=== PATIENT | female | born 1985 | race Caucasian/White ===

== ENCOUNTER 2016-08-12 14:32 | Emergency (ER) | payer OTHER ==
[~2016-08-12] VITALS: Ht 165.1 cm; Wt 55.8 kg
[~2016-08-12 14:32] MED LIST: HYDR-971 PO
[2016-08-12 14:45] VITALS: BP 120/70
--- NOTE | 2016-08-12 16:46 | ED.ADGEN ---
Past History Past Medical History: Anxiety, Bipolar, Depression, UTI Past Surgical History: Tubal ligation Smoking: Cigarettes Alcohol Use: Heavy Drug Use: Marijuana Adult General Chief Complaint Chief Complaint Vaginal discharge, odor HPI HPI Patient is a 31-year-old female presents with vaginal discharge and odor for the past week. Symptoms began after most recent menstrual period. Prior tubal ligation. Denies pain, dysuria, new sex partner. Patient had complete gynecological exam 3 weeks ago by PCP and states which he states was without concern. Review of Systems Review of Systems Review symptoms as per history of present illness. All other review symptoms are negative. Allergies Allergies Allergies Coded Allergies Type Severity Reaction Last Updated Verified Sulfa (Sulfonamide Antibiotics) Allergy Intermediate rash 04/18/16 Yes Uncoded Allergies Type Severity Reaction Last Updated Verified cillins Allergy Intermediate rash 04/18/16 Physical Exam Physical Exam Constitutional: Well developed, well nourished, no acute distress, non-toxic appearance. Abdomen: Bowel sounds normal, soft, no tenderness. Pelvic, strength genitalia normal, minimal discharge in the vagina, no nuchal subtle edema erythema, cervix visualized without lesion. Neurologic: Alert and oriented X 3, normal motor function, normal sensory function, Psychologic: Affect normal, judgement normal, mood normal. Current Patient Data Lab Results Microbiology 08/12/16 Wet Prep - Final, Complete EKG EKG [] Radiology/Procedures Radiology/Procedures [] Course & Med Decision Making Course & Med Decision Making Pertinent Labs and Imaging studies reviewed. (See chart for details) [Antibiotics prescribed with instructions to avoid alcohol and [employer] follow-up as needed] Final Impression Final Impression [#1 bacterial vaginosis] Problems: Dragon Disclaimer Dragon Disclaimer This electronic medical record was generated, in whole or in part, using a voice recognition dictation system. TIFFANIE CASTRO DO Aug 12, 2016 16:46
== END 2016-08-12 16:49 | disposition home or self-care (01) ==
LOC: ER 14:32
DX: N76.0 Acute vaginitis (principal); F17.210 Nicotine dependence, cigarettes, uncomplicated; F12.10 Cannabis abuse, uncomplicated; F10.10 Alcohol abuse, uncomplicated; Z87.440 Personal history of urinary (tract) infections; Z88.2 Allergy status to sulfonamides; Z88.1 Allergy status to other antibiotic agents
CPT/HCPCS: 99283; Q0111

== ENCOUNTER 2016-10-05 10:22 | Emergency (ER) | payer OTHER ==
[2016-10-05 10:30] VITALS: BP 139/82
--- NOTE | 2016-10-05 11:03 | PHYS DOC ---
Past History Past Medical History: Other Past Surgical History: Tubal ligation Smoking: Cigarettes Alcohol Use: Occasionally Drug Use: None Adult General Chief Complaint Chief Complaint: VAGINAL PROBLEM [facility] Peter is a pleasant 31-year-old female with a history of tubal ligation presents with vaginal discharge began several days ago described as a dark brown non- malodorous discharge. She admits she's had a history of BV in the past but no history of sexually transmitted diseases other than that. She's been in a monogamous relation with a new partner over the last several months. She denies any discharge at this the past. She had a little bit of lower crampy abdominal pain without urgency frequency or dysuria. Patient denies any fever, back pain, nausea, vomiting, diarrhea. Patient denies any rash, joint pain or joint swelling. Review of Systems Review of Systems Constitutional: Denies fever or chills [] Eyes: Denies change in visual acuity, redness, or eye pain [] HENT: Denies nasal congestion or sore throat [] Respiratory: Denies cough or shortness of breath [] Cardiovascular: No additional information not addressed in HPI [] GI: She does complain of some mild lower abdominal pain without nausea vomiting diarrhea or bloody stools. : Denies dysuria or hematuria [] Musculoskeletal: Denies back pain or joint pain [] Integument: Denies rash or skin lesions [] Neurologic: Denies headache, focal weakness or sensory changes [] Endocrine: Denies polyuria or polydipsia [] Current Medications Current Medications Current Medications Medications (Trade) Dose Ordered Sig/Kana Start Time Stop Time Status Last Admin Dose Admin Azithromycin (Zithromax) 1,000 mg 1X ONCE 10/05/16 11:00 10/05/16 11:01 UNV Ceftriaxone Sodium (Rocephin Im) 250 mg 1X ONCE 10/05/16 11:00 10/05/16 11:01 UNV Allergies Allergies Allergies Coded Allergies Type Severity Reaction Last Updated Verified Sulfa (Sulfonamide Antibiotics) Allergy Intermediate rash 04/18/16 Yes Uncoded Allergies Type Severity Reaction Last Updated Verified cillins Allergy Intermediate rash 04/18/16 Physical Exam Physical Exam vital signs reviewed and within normal limits. Constitutional: Well developed, well nourished, no acute distress, non-toxic appearance. [] Cardiovascular:Heart rate regular rhythm, no murmur [] Lungs & Thorax: Bilateral breath sounds clear to auscultation [] Abdomen: Bowel sounds normal, soft, no tenderness, no masses, no pulsatile masses. : No CMT no adnexal fullness or tenderness to palpation there is a thin dark brownish discharge that is non-malodorous. No other significant vaginal lesions are noted. [] Skin: Warm, dry, no erythema, no rash. [] Back: No tenderness, no CVA tenderness. [] Neurologic: Alert and oriented X 3 Psychologic: Affect normal, judgement normal, mood normal. [] Current Patient Data Lab Results Laboratory Tests Test 10/05/16 10:40 Urine Test Negative (NEG) EKG EKG [] Radiology/Procedures Radiology/Procedures [] Course & Med Decision Making Course & Med Decision Making Pertinent Labs and Imaging studies reviewed. (See chart for details) patient with a new vaginal discharge although not grading any CMT or adnexal fullness or tenderness. Patient has mild suprapubic pain urinalysis is pending patient's urine is pending and patient's swabs for GC and wet prep for BV are still pending. At this time I have offered empiric treatment for PID/cervicitis with oral azithromycin and a shot of Rocephin. Given her history of high risk behavior having new sexual partner unprotected sex we will call her with positive results if necessary. Impression: Vaginal discharge unclear etiology possibly cervicitis, patient is not doubt ectopic doubt UTI. [] Dragon Disclaimer Dragon Disclaimer This chart was dictated in whole or in part using Voice Recognition software in a busy, high-work load, and often noisy Emergency Department environment. It may contain unintended and wholly unrecognized errors or omissions. Departure Departure: Impression: Primary Impression: Vaginal discharge Additional Impression: Cervicitis Disposition: 01 HOME, SELF-CARE Condition: IMPROVED Referrals: TRACEY ZHENG (PCP) Patient Instructions: Cervicitis Additional Instructions: He is return for any new or increasing discharge please return for any abdominal pain with fevers or chills please return for any pain in the right lower quadrant or abdomen. Please use the medications as prescribed until you' re called with negative results. Scripts Acetaminophen (TYLENOL) 325 Mg Tablet 1-2 TAB PO QID, #30 TAB 2 Refills Prov: HARMONY CAMPBELL MD 10/05/16 Doxycycline Monohydrate (DOXYCYCLINE MONOHYDRATE) 100 Mg Capsule 1 CAP PO BID, #20 CAP Prov: HARMONY CAMPBELL MD 10/05/16 Problem Qualifiers HARMONY CAMPBELL MD Oct 05, 2016 11:03
[2016-10-05 11:06] LABS: U PREG PATIENT NEGATIVE (NEG)
[2016-10-05] MEDS ORDERED: cefTRIAXone IM 250 MG VIAL IM ONE ×2 (11:13→11:20)
[2016-10-05] MEDS ORDERED: AZITHROMYCIN 250 MG TABLET. PO ONE (11:20)
[2016-10-05] MEDS ORDERED: ACET325T9 PO (11:37)
[2016-10-05] MEDS ORDERED: DOXY100C14 PO (11:37)
[2016-10-08 17:09] LABS: CHLAMYDIA PROBE Negative (Negative)
== END 2016-10-05 11:40 | disposition home or self-care (01) ==
LOC: ER 10:22
DX: N89.8 Other specified noninflammatory disorders of vagina (principal); N72 Inflammatory disease of cervix uteri; F17.210 Nicotine dependence, cigarettes, uncomplicated; Z98.51 Tubal ligation status; Z88.2 Allergy status to sulfonamides
CPT/HCPCS: 36415; 81025; 87491; 87591; 96372; 99284; J0456; J0696; Q0111

== ENCOUNTER 2017-02-01 11:08 | Emergency (ER) | payer OTHER ==
[~2017-02-01] VITALS: Ht 165.1 cm; Wt 56.7 kg
[~2017-02-01 11:08] MED LIST changes: +ACET325T9 PO; +DOXY100C14 PO
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
[2017-02-01] MEDS ORDERED: oxyCODONE/APAP 5/325 1 TAB TABLET PO ONE (11:45)
[2017-02-01] MEDS ORDERED: KETOROLAC 60 MG/2 ML VIAL. IM ONE (11:45)
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
[2017-02-01] MEDS ORDERED: HYDR-971 PO (12:21)
[2017-02-01 12:25] VITALS: BP 151/100
== END 2017-02-01 12:26 | disposition home or self-care (01) ==
LOC: EEVIPCON 11:08 → ER 11:08
DX: S20.212A Contusion of left front wall of thorax, initial encounter (principal); F31.9 Bipolar disorder, unspecified; F41.9 Anxiety disorder, unspecified; F17.210 Nicotine dependence, cigarettes, uncomplicated; F12.10 Cannabis abuse, uncomplicated; Z87.440 Personal history of urinary (tract) infections; Z88.2 Allergy status to sulfonamides; Y08.89XA Assault by other specified means, initial encounter; Y93.89 Activity, other specified; Y99.8 Other external cause status; Y92.89 Other specified places as the place of occurrence of the external cause
CPT/HCPCS: 71101; 96372; 99284; J1885

== ENCOUNTER 2017-11-15 19:23 | Emergency (ER) | payer OTHER ==
[~2017-11-15] VITALS: Ht 165.1 cm; Wt 56.7 kg
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
[2017-11-15 20:20] LABS: BACTERIA,URINE FEW /HPF (0-FEW); BILIRUBIN,URINE NEG (NEG); CLARITY,URINE HAZY; COLOR,URINE YELLOW; GLUCOSE,URINE NEG (NEG); NITRITE,URINE NEG (NEG); RBC,URINE OCC /HPF (0-2); SQUAMOUS EPITHELIAL CELL,UR MOD /LPF; UROBILINOGEN,URINE 0.2 mg/dL (0.2 mg/dL)
[2017-11-15 20:21] LABS: GRANULAR CASTS,URINE OCC /HPF
[2017-11-15 20:22] LABS: BARBITURATES NEG (NEG); BENZODIAZEPINES NEG (NEG); CANNABINOIDS POS (NEG); COCAINE NEG (NEG); METHADONE NEG (NEG); OPIATES NEG (NEG); PHENCYCLIDINE NEG (NEG)
[2017-11-15 20:23] LABS: AMPHETAMINE/METHAMPHETAMINE POS (NEG)
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
[2017-11-15 21:00] VITALS: BP 124/80
[2017-11-15] MEDS ORDERED: ACETAMINOPHEN 500 MG TABLET PO ONE (21:15)
== END 2017-11-15 21:15 | disposition home or self-care (01) ==
LOC: ER 19:23
DX: S00.83XA Contusion of other part of head, initial encounter (principal); F19.10 Other psychoactive substance abuse, uncomplicated; F41.9 Anxiety disorder, unspecified; F17.210 Nicotine dependence, cigarettes, uncomplicated; Z88.2 Allergy status to sulfonamides; Z88.0 Allergy status to penicillin; Y04.0XXA Assault by unarmed brawl or fight, initial encounter; Y93.89 Activity, other specified; Y92.89 Other specified places as the place of occurrence of the external cause; Y99.8 Other external cause status
CPT/HCPCS: 36415; 70450; 70486; 72125; 80307; 81001; 81025; 99285; G0479

== ENCOUNTER 2018-01-16 00:48 | Emergency (ER) | payer OTHER ==
[~2018-01-16] VITALS: Ht 165.1 cm; Wt 58.1 kg
[2018-01-16 00:48] VITALS: BP 128/87
[~2018-01-16 00:48] MED LIST changes: +HYDR-3165 PO; -HYDR-971 PO
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
[2018-01-16] MEDS ORDERED: ACETAMINOPHEN 500 MG TABLET PO ONE (01:15)
== END 2018-01-16 01:18 | disposition home or self-care (01) ==
LOC: ER 00:48
DX: S10.93XA Contusion of unspecified part of neck, initial encounter (principal); R04.0 Epistaxis; J02.9 Acute pharyngitis, unspecified; F41.9 Anxiety disorder, unspecified; F32.9 Major depressive disorder, single episode, unspecified; F17.210 Nicotine dependence, cigarettes, uncomplicated; Z88.0 Allergy status to penicillin; Y08.89XA Assault by other specified means, initial encounter; Y93.89 Activity, other specified; Y92.89 Other specified places as the place of occurrence of the external cause; Y99.8 Other external cause status
CPT/HCPCS: 99282

== ENCOUNTER 2018-02-27 16:27 | Emergency (ER) | payer OTHER ==
[2018-02-27] MEDS ORDERED: PERM60CR12 TP (17:16)
[2018-02-27] MEDS ORDERED: PRED20TA PO (17:16)
--- NOTE | 2018-02-27 17:16 | PHYS DOC ---
Past History Past Medical History: Anxiety Past Surgical History: Tubal ligation Smoking: Cigarettes Alcohol Use: Occasionally Drug Use: None Adult General Chief Complaint Chief Complaint: SKIN PROBLEM HPI HPI Patient presents to the emergency department for evaluation. She states that earlier today, she developed diffuse itching on her neck and upper body, as well as on her arms. She has broken out into a maculopapular rash. She has been on doxycycline for about a week. She states that she had a lesion on her left thigh, which has since resolved, which her PCP thought might be either a spider bite or Lyme disease. However the patient states that she had Lyme testing done which came back negative. She is not having any fevers or chills or difficulty breathing. She denies any other complaints at this time. Review of Systems Review of Systems Constitutional: Denies fever or chills [] Eyes: Denies change in visual acuity, redness, or eye pain [] HENT: Denies nasal congestion or sore throat [] Respiratory: Denies cough or shortness of breath [] GI: Denies abdominal pain, nausea, vomiting, bloody stools or diarrhea [] : Denies dysuria or hematuria. Denies [] Musculoskeletal: Denies back pain or joint pain [] Neurologic: Denies headache, focal weakness or sensory changes [] Endocrine: Denies polyuria Allergies Allergies Allergies Coded Allergies Type Severity Reaction Last Updated Verified Sulfa (Sulfonamide Antibiotics) Allergy Intermediate rash 04/18/16 Yes Penicillins Allergy Unknown rash 11/15/17 Yes Physical Exam Physical Exam PHYSICAL EXAM: CONSTITUTIONAL: Well developed, well nourished HEAD: normocephalic, atraumatic EENT: PERRL, EOMI. Conjunctivae normal color, sclerae non-icteric; moist mucous membranes. NECK: Supple, non-tender; no meningismus. LUNGS: Lungs CTA, breathing even and unlabored. Normal air movement. HEART: Regular rate and rhythm, no murmur CHEST: No deformity; non-tender ABDOMEN: The abdomen is soft, and non-tender, no masses or bruits. EXTREM: Normal ROM; no deformity, no calf tenderness. Normal pulses palpable in all extremities. There is no pedal edema. SKIN: There is a diffuse maculopapular rash, scattered on the neck and trunk, which is pruritic. There are a few lesions on the left wrist as well, 3 discrete lesions, which are about 2 mm, and a 3-4 mm apart. There are no urticarial lesions. NEURO: Alert; normal speech and cognition; CN's grossly intact; strength grossly intact without focal deficit. BACK: No CVA TTP. Current Patient Data Vital Signs Vital Signs Date Time Temp Pulse Resp B/P (MAP) Pulse Ox O2 Delivery O2 Flow Rate FiO2 02/27/18 16:30 97.7 91 24 100 Room Air EKG EKG [] Radiology/Procedures Radiology/Procedures [] Course & Med Decision Making Course & Med Decision Making The exact etiology of the patient's symptoms are unclear. I suspect that she might have scabies, although the recent initiation of doxycycline does let and the possibility that this might be an allergic rash. I will give the patient up scabicide, as well as steroids and I recommended she use Benadryl for possible allergic symptoms, I discussed the need for close PCP follow-up and return precautions. Dragon Disclaimer Dragon Disclaimer This electronic medical record was generated, in whole or in part, using a voice recognition dictation system. Departure Departure: Impression: Primary Impression: Rash Disposition: HOME, SELF-CARE Condition: STABLE Referrals: TRACEY ZHENG (PCP) Patient Instructions: Drug Rash, Rash, Scabies Additional Instructions: Take Benadryl 25-50 mg every 6 hours for the next 3 days. Use caution as this may cause sedation. Additionally, take Pepcid AC 10 mg twice daily for the next 3 days. This medicine is available [id number]. Use the prescribed steroids as instructed. Return to medical care for any new, or worsening symptoms, the development of shortness of breath, new rash, dizziness lightheadedness, fevers, or any other new, or concerning symptoms. Scripts Prednisone (PREDNISONE) 20 Mg Tablet 40 MG PO DAILY for - for 5 Days, #10 TAB Prov: PEGGY SANTANA MD 02/27/18 Permethrin (PERMETHRIN) 60 Gm Cream..g. 1 ADONIS TP ONCE for -, #60 GM 1 Refill Prov: PEGGY SANTANA MD 02/27/18 PEGGY SANTANA MD Feb 27, 2018 17:16
[2018-02-27 17:25] VITALS: BP 120/68
== END 2018-02-27 17:38 | disposition home or self-care (01) ==
LOC: ER 16:27
DX: R21 Rash and other nonspecific skin eruption (principal); L29.9 Pruritus, unspecified; L98.8 Other specified disorders of the skin and subcutaneous tissue; F41.9 Anxiety disorder, unspecified; F17.210 Nicotine dependence, cigarettes, uncomplicated; Z88.0 Allergy status to penicillin; Z88.2 Allergy status to sulfonamides
CPT/HCPCS: 99283

== ENCOUNTER 2018-03-05 20:21 | Emergency (ER) | payer OTHER ==
[~2018-03-05] VITALS: Ht 167.6 cm; Wt 59.0 kg
[~2018-03-05 20:21] MED LIST changes: +PERM60CR12 TP; +PRED20TA PO
[2018-03-05 20:25] VITALS: BP 128/84
--- NOTE | 2018-03-05 20:27 | ED.ADGEN ---
Past History Past Medical History: Anxiety Past Surgical History: Tubal ligation Smoking: Cigarettes Alcohol Use: Occasionally Drug Use: None Adult General Chief Complaint Chief Complaint "... I think I got scabies again... I did the treatment... but I ve got them back..." HPI HPI Patient is a 33 year old male who presents with above hx and complaints of itching, return of rash that appears to be scabies. Pt. did complete treatment with Permethrin and did do a course of steroids and pepcid for itching. Pt. [facility] and [facility]. Pt. does have findings of scabies. Pt. did wash clothes but may have [facility]. Pt. does have Nix treatments in her storage locker. No recent travel, specific ill contacts. Recent HIV testing was reportedly negative. Review of Systems Review of Systems Constitutional: Denies fever or chills [] Eyes: Denies change in visual acuity, redness, or eye pain [] HENT: Denies nasal congestion or sore throat [] Respiratory: Denies cough or shortness of breath [] Cardiovascular: No additional information not addressed in HPI [] GI: Denies abdominal pain, nausea, vomiting, bloody stools or diarrhea [] : Denies dysuria or hematuria [] Musculoskeletal: Denies back pain or joint pain [] Integument: complaints of scabies lesions. Neurologic: Denies headache, focal weakness or sensory changes [] Endocrine: Denies polyuria or polydipsia [] All other systems were reviewed and found to be within normal limits, except as documented in this note. Family History Family History Non-contributory Current Medications Current Medications See Nursing for home meds. Allergies Allergies Allergies Coded Allergies Type Severity Reaction Last Updated Verified doxycycline Allergy Severe 03/05/18 Yes Sulfa (Sulfonamide Antibiotics) Allergy Intermediate rash 04/18/16 Yes Penicillins Allergy Unknown rash 11/15/17 Yes Physical Exam Physical Exam Constitutional: in acute emotional distress, non-toxic appearance. [] HENT: Normocephalic, atraumatic, bilateral external ears normal, oropharynx moist, no oral exudates, nose normal. [] Eyes: PERRLA, EOMI, conjunctiva normal, no discharge. [] Neck: Normal range of motion, no tenderness, supple, no stridor. [] Cardiovascular:Heart rate regular rhythm, no murmur [] Lungs & Thorax: Bilateral breath sounds equal at apexes with few scatted wheezes on auscultation [] Abdomen: Bowel sounds normal, soft, no tenderness, no masses, no pulsatile masses. [] Skin: Warm, dry, no erythema, extensive findings of scabies like lesions with excoriations secondary to scratching. Back: No tenderness, no CVA tenderness. [] Extremities: No tenderness, no cyanosis, no clubbing, ROM intact, no edema. [] Neurologic: Alert and oriented X 3, normal motor function, normal sensory function, no focal deficits noted. [] Psychologic: Affect anxious, judgement normal, mood normal. [] Current Patient Data Vital Signs Vital Signs Date Time Temp Pulse Resp B/P (MAP) Pulse Ox O2 Delivery O2 Flow Rate FiO2 03/05/18 20:25 97.9 98 18 100 Room Air EKG EKG [] Radiology/Procedures Radiology/Procedures [] Course & Med Decision Making Course & Med Decision Making Pertinent Labs and Imaging studies reviewed. (See chart for details). Pt. advised to clean her environment and use pesticide aerosols as directed over -the-counter preparations. Since patient already has bottles of nix in her storage unit would recommend attempt to retreat with these items. May repeat treatment with permethrin cream. If available may use lindane ointment- however this has a risk of neurotoxicity. If extremely resistant scabies may use[ Ivermectin 3 mg x 1 and repeat in 7 days with the topical treatments. None of the treatments will prevent re-infection with re-exposure. Must follow up with primary. Pt. warned tx usually induces increased itching. Use Benadryl 50 up 4 x day of pruritus. Final Impression Final Impression 1. Scabies[] Dragon Disclaimer Dragon Disclaimer This electronic medical record was generated, in whole or in part, using a voice recognition dictation system. Dragon Disclaimer This chart was dictated in whole or in part using Voice Recognition software in a busy, high-work load, and often noisy Emergency Department environment. It may contain unintended and wholly unrecognized errors or omissions. Discharge Summary Visit Information Final Diagnosis Problems Medical Problems: (1) Scabies Status: Acute Brief Hospital Course Allergies Allergies Coded Allergies Type Severity Reaction Last Updated Verified doxycycline Allergy Severe 03/05/18 Yes Sulfa (Sulfonamide Antibiotics) Allergy Intermediate rash 04/18/16 Yes Penicillins Allergy Unknown rash 11/15/17 Yes Vital Signs Vital Signs Date Time Temp Pulse Resp B/P (MAP) Pulse Ox O2 Delivery O2 Flow Rate FiO2 03/05/18 20:25 97.9 98 18 100 Room Air Brief Hospital Course Ms. Lamar is a 33 old female who presented with re-current infection of scabies like lesions. Hx. of most likely re-exposure and completed only partial tx. and environment tx. Discharge Information Condition at Discharge: Stable Disposition/Orders: D/C to Home Dischare Medications Active Scripts Active Ivermectin 3 Mg Tablet 3 Mg PO 1X Lindane 60 Ml Shampoo 60 Ml TP 1X Permethrin 60 Gm Cream..g. 1 Radha TP ONCE Permethrin 60 Gm Cream..g. 1 Radha TP ONCE Prednisone 20 Mg Tablet 40 Mg PO DAILY 5 Days Permethrin 60 Gm Cream..g. 1 Radha TP ONCE LUCILA ESPINAL MD Mar 05, 2018 20:27
[2018-03-05] MEDS ORDERED: PERM60CR12 TP (21:26)
[2018-03-05] MEDS ORDERED: IVER3TAB2 PO (21:26)
[2018-03-05] MEDS ORDERED: LIND60SH2 TP (21:26)
== END 2018-03-05 21:31 | disposition home or self-care (01) ==
LOC: ER 20:21
DX: B86 Scabies (principal); F41.9 Anxiety disorder, unspecified; F17.210 Nicotine dependence, cigarettes, uncomplicated; Z88.1 Allergy status to other antibiotic agents; Z88.2 Allergy status to sulfonamides; Z88.0 Allergy status to penicillin
CPT/HCPCS: 99283

== ENCOUNTER 2018-03-09 04:29 | Emergency (ER) | payer OTHER ==
[~2018-03-09] VITALS: Ht 160 cm; Wt 56.7 kg
[~2018-03-09 04:29] MED LIST changes: +IVER3TAB2 PO; +LIND60SH2 TP
[2018-03-09 04:41] VITALS: BP 119/70
[2018-03-09 05:29] LABS: BASO # 0.1 x10^3/uL (0.0-0.2); BASO % 1 % (0-3); EOS % 9 % (0-3); HEMATOCRIT 36.8 % (36.0-47.0); HEMOGLOBIN 12.4 g/dL (12.0-15.5); LYMPH # 3.6 x10^3/uL (1.0-4.8); LYMPH % 34 % (24-48); MEAN CORPUSCULAR HEMOGLOBIN 31 pg (25-35); MEAN CORPUSCULAR HGB CONC 34 g/dL (31-37); MEAN CORPUSCULAR VOLUME 91 fL (79-100); MONO % 9 % (0-9); NEUT # 5.2 x10^3uL (1.8-7.7); NEUT % 48 % (31-73); PLATELET COUNT 296 x10^3/uL (140-400); RED BLOOD COUNT 4.02 x10^6/uL (3.50-5.40); RED CELL DISTRIBUTION WIDTH 13.5 % (11.5-14.5); WHITE BLOOD COUNT 10.8 x10^3/uL (4.0-11.0)
[2018-03-09] MEDS ORDERED: KETOROLAC 30 MG/ML VIAL. IV ONE (05:30)
[2018-03-09] MEDS ORDERED: KETOROLAC 60 MG/2 ML VIAL. IM ONE (05:30)
[2018-03-09 05:32] LABS: BACTERIA,URINE 0 /HPF (0-FEW); BILIRUBIN,URINE NEG (NEG); CLARITY,URINE CLEAR; COLOR,URINE YELLOW; GLUCOSE,URINE NEG (NEG); NITRITE,URINE NEG (NEG); RBC,URINE OCC /HPF (0-2); UROBILINOGEN,URINE 0.2 mg/dL (0.2 mg/dL); WBC,URINE OCC /HPF (0-4)
[2018-03-09 05:33] LABS: AMPHETAMINE/METHAMPHETAMINE POS (NEG); BARBITURATES NEG (NEG); BENZODIAZEPINES NEG (NEG); CANNABINOIDS POS (NEG); COCAINE NEG (NEG); METHADONE NEG (NEG); OPIATES NEG (NEG); PHENCYCLIDINE NEG (NEG); SQUAMOUS EPITHELIAL CELL,UR FEW /LPF
[2018-03-09 05:39] LABS: ALBUMIN 3.7 g/dL (3.4-5.0); ALBUMIN/GLOBULIN RATIO 1.1 (1.0-1.7); CALCIUM 8.5 mg/dL (8.5-10.1); CREATININE 0.9 mg/dL (0.6-1.0); GFR 72.1; POTASSIUM 3.6 mmol/L (3.5-5.1); TOTAL BILIRUBIN 0.2 mg/dL (0.2-1.0)
--- NOTE | 2018-03-09 05:40 | PHYS DOC ---
JACOB DARBY MD 03/09/18 0540: Adult General Chief Complaint Chief Complaint swollen feet HPI HPI 33 years old female presented emergency department with a swollen feet bilaterally with redness around the ankles associated with tenderness no fever no chills no urgency no frequency no hematuria no shortness of breath no chest pain no pleuritic chest pain no recent travel Review of Systems Review of Systems Constitutional: Denies fever or chills [] Eyes: Denies change in visual acuity, redness, or eye pain [] HENT: Denies nasal congestion or sore throat [] Respiratory: Denies cough or shortness of breath [] Cardiovascular: No additional information not addressed in HPI [] GI: Denies abdominal pain, nausea, vomiting, bloody stools or diarrhea [] : Denies dysuria or hematuria [] Integument: Denies rash or skin lesions [] Neurologic: Denies headache, focal weakness or sensory changes [] Endocrine: Denies polyuria or polydipsia [] All other systems were reviewed and found to be within normal limits, except as documented in this note. Current Medications Current Medications Current Medications Medications (Trade) Dose Ordered Sig/Kana Start Time Stop Time Status Last Admin Dose Admin Ketorolac Tromethamine (Toradol 30mg Vial) 30 mg 1X ONCE 03/09/18 05:30 03/09/18 05:31 DC 03/09/18 05:25 30 MG Ketorolac Tromethamine (Toradol Im) 60 mg 1X ONCE 03/09/18 05:30 03/09/18 05:31 DC Allergies Allergies Allergies Coded Allergies Type Severity Reaction Last Updated Verified doxycycline Allergy Severe 03/05/18 Yes Sulfa (Sulfonamide Antibiotics) Allergy Intermediate rash 04/18/16 Yes Penicillins Allergy Unknown rash 11/15/17 Yes Physical Exam Physical Exam Constitutional: Well developed, well nourished, no acute distress, non-toxic appearance. [] HENT: Normocephalic, atraumatic, bilateral external ears normal, oropharynx moist, no oral exudates, nose normal. [] Eyes: PERRLA, EOMI, conjunctiva normal, no discharge. [] Neck: Normal range of motion, no tenderness, supple, no stridor. [] Cardiovascular:Heart rate regular rhythm, no murmur [] Lungs & Thorax: Bilateral breath sounds clear to auscultation [] Abdomen: Bowel sounds normal, soft, no tenderness, no masses, no pulsatile masses. [] Skin: Warm, dry, no erythema, no rash. [] Back: No tenderness, no CVA tenderness. [] Extremities +1 edema bilaterally good pulse, minimal redness around the ankles bilaterally. Neurologic: Alert and oriented X 3, normal motor function, normal sensory function, no focal deficits noted. [] Psychologic: Affect normal, judgement normal, mood normal. [] Current Patient Data Vital Signs Vital Signs Date Time Temp Pulse Resp B/P (MAP) Pulse Ox O2 Delivery O2 Flow Rate FiO2 03/09/18 04:41 97.6 104 18 98 Room Air Lab Results Laboratory Tests Test 03/09/18 05:00 03/09/18 05:05 03/09/18 05:15 Urine Collection Type Unknown Urine Color Yellow Urine Clarity Clear Urine pH 6.5 Urine Specific [place] 1.020 Urine Protein Neg (NEG-TRACE) Urine Glucose (UA) Neg mg/dL (NEG) Urine Ketones (Stick) Neg mg/dL (NEG) Urine Blood Neg (NEG) Urine Nitrite Neg (NEG) Urine Bilirubin Neg (NEG) Urine Urobilinogen Dipstick 0.2 mg/dL (0.2 mg/dL) Urine Leukocyte Esterase Neg (NEG) Urine RBC Occ /HPF (0-2) Urine WBC Occ /HPF (0-4) Urine Squamous Epithelial Cells Few /LPF Urine Bacteria 0 /HPF (0-FEW) Urine Opiates Screen Neg (NEG) Urine Methadone Screen Neg (NEG) Urine Barbiturates Neg (NEG) Urine Phencyclidine Screen Neg (NEG) Urine Amphetamine/Methamphetamine Pos (NEG) Urine Benzodiazepines Screen Neg (NEG) Urine Cocaine Screen Neg (NEG) Urine Cannabinoids Screen Pos (NEG) Urine Ethyl Alcohol Neg (NEG) White Blood Count 10.8 x10^3/uL (4.0-11.0) Red Blood Count 4.02 x10^6/uL (3.50-5.40) Hemoglobin 12.4 g/dL (12.0-15.5) Hematocrit 36.8 % (36.0-47.0) Mean Corpuscular Volume 91 fL (79-100) Mean Corpuscular Hemoglobin 31 pg (25-35) Mean Corpuscular Hemoglobin Concent 34 g/dL (31-37) Red Cell Distribution Width 13.5 % (11.5-14.5) Platelet Count 296 x10^3/uL (140-400) Neutrophils (%) (Auto) 48 % (31-73) Lymphocytes (%) (Auto) 34 % (24-48) Monocytes (%) (Auto) 9 % (0-9) Eosinophils (%) (Auto) 9 % (0-3) H Basophils (%) (Auto) 1 % (0-3) Neutrophils # (Auto) 5.2 x10^3uL (1.8-7.7) Lymphocytes # (Auto) 3.6 x10^3/uL (1.0-4.8) Monocytes # (Auto) 1.0 x10^3/uL (0.0-1.1) Eosinophils # (Auto) 1.0 x10^3/uL (0.0-0.7) H Basophils # (Auto) 0.1 x10^3/uL (0.0-0.2) Sodium Level 142 mmol/L (136-145) Potassium Level 3.6 mmol/L (3.5-5.1) Chloride Level 104 mmol/L (98-107) Carbon Dioxide Level 29 mmol/L (21-32) Anion Gap 9 (6-14) Blood Urea Nitrogen 17 mg/dL (7-20) Creatinine 0.9 mg/dL (0.6-1.0) Estimated GFR (Cockcroft-Gault) 72.1 BUN/Creatinine Ratio 19 (6-20) Glucose Level 78 mg/dL (70-99) Calcium Level 8.5 mg/dL (8.5-10.1) Total Bilirubin 0.2 mg/dL (0.2-1.0) Aspartate Amino Transferase (AST) 13 U/L (15-37) L Alanine Aminotransferase (ALT) 19 U/L (14-59) Alkaline Phosphatase 40 U/L (46-116) L Total Protein 7.0 g/dL (6.4-8.2) Albumin 3.7 g/dL (3.4-5.0) Albumin/Globulin Ratio 1.1 (1.0-1.7) POC Urine HCG, Qualitative hcg negative (Negative) EKG EKG [] Radiology/Procedures Radiology/Procedures [] Course & Med Decision Making Course & Med Decision Making Pertinent Labs and Imaging studies reviewed. (See chart for details) [] Final Impression Final Impression [] Problems: (1) Leg pain Qualifiers: Qualified Codes: M79.604 - Pain in right leg; M79.605 - Pain in left leg Dragon Disclaimer Dragon Disclaimer This electronic medical record was generated, in whole or in part, using a voice recognition dictation system. SHARITA CHAUDHARY MD 03/09/18 0641: Adult General Course & Med Decision Making Course & Med Decision Making Patient care transferred to sd at [address] Childers for following up the lab results. Patient did not have elevation of d-dimer or abnormal electrolyte or sign of infection blood tests. Patient had positive urine test for methamphetamine and marijuana. Patient complaining of chronic bilateral lower extremity edema and erythema and pain for months. Patient did not have acute finding and instructed to follow-up with her primary care physician for chronic problem and possible referral to field technician. Final Impression Problems: (1) Lower extremity edema (2) Methamphetamine abuse (3) Marijuana abuse (4) Anxiety (5) Tobacco abuse (6) Tobacco abuse counseling Departure Time of Disposition: 06:38 Disposition: 01 HOME, SELF-CARE Condition: STABLE Patient Instructions: Marijuana Abuse-Brief, Methamphetamine Abuse, Complications, Peripheral Edema Additional Instructions: Quit using illegal drugs Follow-up with your primary care physician in 3-5 days for chronic leg swelling and redness Return to ER if not getting better JACOB DARBY MD Mar 09, 2018 05:40 SHARITA CHAUDHARY MD Mar 09, 2018 06:41
== END 2018-03-09 06:46 | disposition home or self-care (01) ==
LOC: ER 04:29
DX: R60.0 Localized edema (principal); M79.604 Pain in right leg; M79.605 Pain in left leg; F41.9 Anxiety disorder, unspecified; F15.10 Other stimulant abuse, uncomplicated; F12.10 Cannabis abuse, uncomplicated; Z72.0 Tobacco use; Z71.6 Tobacco abuse counseling; Z88.1 Allergy status to other antibiotic agents; Z88.2 Allergy status to sulfonamides; Z88.0 Allergy status to penicillin
CPT/HCPCS: 36415; 80053; 80307; 81001; 81025; 83880; 85025; 85379; 96374; 99283; J1885

== ENCOUNTER → 2018-03-10 | Outpatient (CLI) | payer OTHER ==
[2018-03-09 04:41] VITALS: BP 119/70
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
== END | disposition home or self-care (01) ==
LOC: PMG 14:53
PROVIDERS: ATTEND Registered Nurse
DX: R06.02 Shortness of breath (principal)
CPT/HCPCS: 71046

== ENCOUNTER 2018-06-06 19:14 | Emergency (ER) | payer OTHER ==
[~2018-06-06] VITALS: Ht 160 cm; Wt 64.2 kg
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
[2018-06-06] MEDS ORDERED: CLIN300C8 PO (19:56)
[2018-06-06] MEDS ORDERED: PERM60CR12 TP (20:04)
[2018-06-06] MEDS ORDERED: cefTRIAXone IM 1 GM VIAL IM ONE (20:15)
[2018-06-06] MEDS ORDERED: CLINDAMYCIN HCL 150 MG CAPSULE PO ONE (20:15)
[2018-06-06 20:30] VITALS: BP 128/70
== END 2018-06-06 20:37 | disposition home or self-care (01) ==
LOC: ER 19:14
DX: L03.113 Cellulitis of right upper limb (principal); F41.9 Anxiety disorder, unspecified; F17.210 Nicotine dependence, cigarettes, uncomplicated; F15.10 Other stimulant abuse, uncomplicated; F12.10 Cannabis abuse, uncomplicated; Z88.1 Allergy status to other antibiotic agents; Z88.2 Allergy status to sulfonamides; Z88.0 Allergy status to penicillin
CPT/HCPCS: 96372; 99283; J0696

== ENCOUNTER 2018-07-17 20:30 | Emergency (ER) | payer OTHER ==
[~2018-07-17] VITALS: Ht 167.6 cm; Wt 62.6 kg
[~2018-07-17 20:30] MED LIST changes: +CLIN300C8 PO
[2018-07-17] MEDS ORDERED: PERM60CR12 TP (21:18)
[2018-07-17] MEDS ORDERED: FLUC150T PO (21:18)
[2018-07-17] MEDS ORDERED: CEPH-264 PO (21:20)
--- NOTE | 2018-07-17 21:22 | PHYS DOC ---
Past History Past Medical History: Anxiety, Other Past Surgical History: Tubal ligation Smoking: Cigarettes Alcohol Use: Sober Drug Use: Marijuana, Methamphetamine Adult General Chief Complaint Chief Complaint: Rash HPI HPI Patient is a 33 year old female who presents with complaint of generalized rash and itching. Patient states that she has been dealing with a diffuse rash that is similar to previous episode of scabies over the past 2 days. States that the rashes on her bilateral upper and lower extremities, trunk, and around neck, and on face. Patient also notes that she has had redness to the bilateral lower extremities and has had swelling. Notes that she has had history of peripheral edema but has not had any further evaluation to rule out a cardiac source. Follows with Tracey Rangel for primary care. Denies shortness of breath or fever currently. Has not taken any medications for her symptoms. States that she works on her feet daily and does note that her swelling does get worse at the end of her shift. Review of Systems Review of Systems Constitutional: Denies fever or chills [] Eyes: Denies change in visual acuity, redness, or eye pain [] HENT: Denies nasal congestion or sore throat [] Respiratory: Denies cough or shortness of breath [] Cardiovascular: Edema, denies chest pain[] GI: Denies abdominal pain, nausea, vomiting, bloody stools or diarrhea [] : Denies dysuria or hematuria [] Musculoskeletal: Denies back pain or joint pain [] Integument: Rash[] Neurologic: Denies headache, focal weakness or sensory changes [] All other systems were reviewed and found to be within normal limits, except as documented in this note. Allergies Allergies Allergies Coded Allergies Type Severity Reaction Last Updated Verified doxycycline Allergy Severe 03/05/18 Yes Sulfa (Sulfonamide Antibiotics) Allergy Intermediate rash 04/18/16 Yes Penicillins Allergy Unknown rash 11/15/17 Yes Physical Exam Physical Exam Constitutional: Alert, afebrile, no acute distress. [] HENT: Normocephalic, atraumatic, bilateral external ears normal, oropharynx moist, no oral exudates, nose normal. [] Eyes: PERRLA, EOMI, conjunctiva normal, no discharge. [] Neck: Normal range of motion, no tenderness, supple, no stridor. [] Cardiovascular:Heart rate regular rhythm, no murmur [] Lungs & Thorax: Bilateral breath sounds clear to auscultation [] Abdomen: Bowel sounds normal, soft, no tenderness, no masses, no pulsatile masses. [] Skin: Warm, dry, no erythema, multiple raised lesions along chest, bilateral upper and lower extremities, neck, and face, few lesions have slight tunneling, consistent with scabies, erythema present on the bilateral lower extremities. [] Back: No tenderness, no CVA tenderness. [] Extremities: No tenderness, no cyanosis, no clubbing, ROM intact, 1+ pitting edema in the bilateral lower extremities. [] Neurologic: Alert and oriented X 3, normal motor function, normal sensory function, no focal deficits noted. [] Current Patient Data Vital Signs Vital Signs Date Time Temp Pulse Resp B/P (MAP) Pulse Ox O2 Delivery O2 Flow Rate FiO2 07/17/18 23:51 97.5 99 20 106/75 (85) 98 07/17/18 22:24 Room Air Lab Results Not performed EKG EKG Not performed[] Radiology/Procedures Radiology/Procedures Not performed[] Course & Med Decision Making Course & Med Decision Making Pertinent Labs and Imaging studies reviewed. (See chart for details) Patient was prescribed permethrin cream for treatment of scabies. Patient does show signs of possible cellulitis to the bilateral lower extremities. Started on Keflex for treatment. Also prescribed Diflucan due to history of yeast infection secondary to antibiotic use. Advised follow-up with patient's primary provider in the next 5-7 days if symptoms are not improving. Advised return to emergency department for any worsening symptoms. Patient was understanding and in agreement with treatment plan.[] Dragon Disclaimer Dragon Disclaimer This electronic medical record was generated, in whole or in part, using a voice recognition dictation system. Departure Departure: Impression: Primary Impression: Scabies Additional Impressions: Cellulitis Peripheral edema Disposition: 01 HOME, SELF-CARE Condition: STABLE Referrals: TRACEY RANGEL (PCP) Patient Instructions: Cellulitis, Peripheral Edema, Scabies Additional Instructions: Follow-up with your primary doctor in 5-7 days. Return to the emergency departm ent for any worsening symptoms. Scripts Cephalexin (KEFLEX) 500 Mg Capsule 1 CAP PO TID, #30 CAP Prov: MIGUEL SLAUGHTER MD 07/17/18 Fluconazole (DIFLUCAN) 150 Mg Tablet 1 TAB PO ONCE, #1 TAB 0 Refills Prov: MIGUEL SLAUGHTER MD 07/17/18 Permethrin (PERMETHRIN) 60 Gm Cream..g. 1 ADONIS TP ONCE, #60 GM 1 Refill Prov: MIGUEL SLAUGHTER MD 07/17/18 Problem Qualifiers Additional Impressions: Cellulitis Site of cellulitis: extremity Site of cellulitis of extremity: lower extremity Laterality: unspecified laterality Qualified Codes: L03.119 - Cellulitis of unspecified part of limb MIGUEL SLAUGHTER MD July 17, 2018 21:22
[2018-07-17 23:51] VITALS: BP 106/75
== END 2018-07-17 22:15 | disposition home or self-care (01) ==
LOC: ER 20:33
DX: B86 Scabies (principal); L03.116 Cellulitis of left lower limb; L03.115 Cellulitis of right lower limb; R60.0 Localized edema; F41.9 Anxiety disorder, unspecified; F17.210 Nicotine dependence, cigarettes, uncomplicated; Z88.1 Allergy status to other antibiotic agents; Z88.2 Allergy status to sulfonamides; Z88.0 Allergy status to penicillin
CPT/HCPCS: 99283

== ENCOUNTER 2018-08-03 10:50 | Emergency (ER) | payer OTHER ==
[~2018-08-03] VITALS: Ht 167.6 cm; Wt 62.6 kg
[~2018-08-03 10:50] MED LIST changes: +CEPH-264 PO; +FLUC150T PO
--- NOTE | 2018-08-03 11:11 | PHYS DOC ---
Past History Past Medical History: No Pertinent History Past Surgical History: No Surgical History Smoking: Cigarettes Alcohol Use: Sober Drug Use: Marijuana, Methamphetamine Adult General Chief Complaint Chief Complaint: FOOT INJURY PAIN HPI HPI Patient is a 33-year-old female presents complaining of bilateral lower extremity swelling that is been present for several weeks. She reports that she was previously seen in the emergency department for this, told that she had peripheral edema and rectum to follow up with her primary care physician. She has not followed up with her primary care physician. She reports that this has been getting worse over time. No improvement with laying down at bedtime. She denies any orthopnea or postural nocturnal dyspnea. Denies any respirophasic chest pain. Denies any recent travel. Patient recently started a new job, no working at [employer], involving lots of standing and walking. She reports that these symptoms started prior to her new job. She denies any trauma. Nothing seems to make the symptoms better or worse.[] Review of Systems Review of Systems Constitutional: Denies fever or chills [] Eyes: Denies change in visual acuity, redness, or eye pain [] HENT: Denies nasal congestion or sore throat [] Respiratory: Denies cough or shortness of breath [] Cardiovascular: No additional information not addressed in HPI [] GI: Denies abdominal pain, nausea, vomiting, bloody stools or diarrhea [] : Denies dysuria or hematuria [] Musculoskeletal: Denies back pain, see history of present illness[] Integument: Denies rash or skin lesions [] Neurologic: Denies headache, focal weakness or sensory changes [] Endocrine: Denies polyuria or polydipsia [] All other systems were reviewed and found to be within normal limits, except as documented in this note. Current Medications Current Medications Current Medications Medications (Trade) Dose Ordered Sig/Kana Start Time Stop Time Status Last Admin Dose Admin Furosemide (Lasix) 20 mg 1X ONCE 08/03/18 11:15 08/03/18 11:16 UNV Allergies Allergies Allergies Coded Allergies Type Severity Reaction Last Updated Verified doxycycline Allergy Severe 03/05/18 Yes Sulfa (Sulfonamide Antibiotics) Allergy Intermediate rash 04/18/16 Yes Penicillins Allergy Unknown rash 11/15/17 Yes Physical Exam Physical Exam Constitutional: Well developed, well nourished, no acute distress, non-toxic appearance. [] HENT: Normocephalic, atraumatic, bilateral external ears normal, oropharynx moist, no oral exudates, nose normal. [] Eyes: PERRLA, EOMI, conjunctiva normal, no discharge. [] Neck: Normal range of motion, no tenderness, supple, no stridor. [] Cardiovascular:Heart rate regular rhythm, no murmur [] Lungs & Thorax: Bilateral breath sounds clear to auscultation [] Abdomen: Bowel sounds normal, soft, no tenderness, no masses, no pulsatile masses. [] Skin: Warm, dry, no erythema, no rash. [] Back: No tenderness, no CVA tenderness. [] Extremities: No tenderness, no cyanosis, no clubbing, ROM intact, 2+ pretibial edema bilaterally, negative Homans sign, capillary refill is less than 2 seconds. [] Neurologic: Alert and oriented X 3, normal motor function, normal sensory function, no focal deficits noted. [] Psychologic: Affect normal, judgement normal, mood normal. [] EKG EKG EKG shows a sinus rhythm, 63 bpm, normal axis, normal QTC, no ST elevations. Interpreted by me at 12:30[] Radiology/Procedures Radiology/Procedures PROCEDURE: PORTABLE CHEST 1V EXAM: CHEST 1 VIEW History: Chest pain COMPARISON: 03/10/2018 TECHNIQUE: Single portable radiograph of the chest FINDINGS: The cardiac silhouette is unremarkable. The lungs are clear bilaterally. The costophrenic sulci are clear and well demarcated. IMPRESSION: No radiographic evidence of an acute cardiopulmonary process. PROCEDURE: DUPLEX LOWER EXTREMITY BILAT Examination: Bilateral lower extremity Venous Doppler Ultrasound History: Bilateral ovaries with edema, chest pain Comparison: None Procedure: Grayscale, color Doppler 2-D, spectral waveform is in the bilateral lower extremity venous system were performed. Findings: There is normal duplex flow, color flow and compressibility of all visualized vein segments. No evidence of deep venous thrombus is present. Impression: Normal venous Doppler ultrasound with no evidence of DVT.[] Course & Med Decision Making Course & Med Decision Making Pertinent Labs and Imaging studies reviewed. (See chart for details) Medical decision making: There is no evidence of an acute coronary syndrome, CHF, DVT, nor other significant abnormality accounting for this peripheral edema. No evidence of an infection. This may be related to her drug use/abuse as noted on the tox screen. ED course: Patient arrived, placed in bed, and tolerated exam well. She was given a dose of Lasix. After the return of lab and imaging studies, these were discussed with the patient who voiced understanding. All questions were answered. She was discharged in improved condition.[] Dragon Disclaimer Dragon Disclaimer This electronic medical record was generated, in whole or in part, using a voice recognition dictation system. Departure Departure: Impression: Primary Impression: Lower extremity edema Disposition: HOME, SELF-CARE Condition: IMPROVED Referrals: TRACEY ZHENG (PCP) Follow-up in 2 days Patient Instructions: Peripheral Edema Additional Instructions: Follow-up with your regular doctor in 2 days. Wear compression socks that are available [id number] at places like [employer] and [employer]. Do not use any drugs or medicines that are not prescribed for you, they may kill you! Return to the ER if worsening difficulty breathing or any other concerns. Scripts Furosemide (LASIX) 20 Mg Tablet 1 TAB PO DAILY for peripheral edema, #305 TAB 0 Refills Prov: BORIS GONZALES DO 08/03/18 BORIS GONZALES DO Aug 03, 2018 11:11
--- NOTE | 2018-08-03 11:36 | RAD ---
EXAM: CHEST 1 VIEW History: Chest pain COMPARISON: 03/10/2018 TECHNIQUE: Single portable radiograph of the chest FINDINGS: The cardiac silhouette is unremarkable. The lungs are clear bilaterally. The costophrenic sulci are clear and well demarcated. IMPRESSION: No radiographic evidence of an acute cardiopulmonary process.
[2018-08-03 11:38] LABS: BARBITURATES NEG (NEG); BENZODIAZEPINES NEG (NEG); CANNABINOIDS NEG (NEG); COCAINE NEG (NEG); METHADONE NEG (NEG); OPIATES NEG (NEG); PHENCYCLIDINE NEG (NEG)
[2018-08-03 11:39] LABS: AMPHETAMINE/METHAMPHETAMINE POS (NEG)
[2018-08-03] MEDS ORDERED: FUROSEMIDE 40 MG/4 ML VIAL ONE (11:44)
[2018-08-03 11:57] LABS: BACTERIA,URINE 0 /HPF (0-FEW); BILIRUBIN,URINE NEG (NEG); CLARITY,URINE HAZY; COLOR,URINE YELLOW; GLUCOSE,URINE NEG (NEG); NITRITE,URINE NEG (NEG); SQUAMOUS EPITHELIAL CELL,UR OCC /LPF; UROBILINOGEN,URINE 0.2 mg/dL (0.2 mg/dL); WBC,URINE 0 /HPF (0-4)
[2018-08-03 12:25] VITALS: BP 139/87
--- NOTE | 2018-08-03 12:35 | RAD ---
Examination: Bilateral lower extremity Venous Doppler Ultrasound History: Bilateral ovaries with edema, chest pain Comparison: None Procedure: Grayscale, color Doppler 2-D, spectral waveform is in the bilateral lower extremity venous system were performed. Findings: There is normal duplex flow, color flow and compressibility of all visualized vein segments. No evidence of deep venous thrombus is present. Impression: Normal venous Doppler ultrasound with no evidence of DVT.
[2018-08-03 12:45] LABS: BASO # 0.1 x10^3/uL (0.0-0.2); BASO % 1 % (0-3); EOS # 0.6 x10^3/uL (0.0-0.7); EOS % 6 % (0-3); HEMATOCRIT 37.8 % (36.0-47.0); HEMOGLOBIN 12.7 g/dL (12.0-15.5); LYMPH # 2.6 x10^3/uL (1.0-4.8); LYMPH % 30 % (24-48); MEAN CORPUSCULAR HEMOGLOBIN 31 pg (25-35); MEAN CORPUSCULAR HGB CONC 34 g/dL (31-37); MEAN CORPUSCULAR VOLUME 92 fL (79-100); MONO # 0.7 x10^3/uL (0.0-1.1); MONO % 9 % (0-9); NEUT # 4.7 x10^3uL (1.8-7.7); NEUT % 54 % (31-73); PLATELET COUNT 316 x10^3/uL (140-400); RED BLOOD COUNT 4.11 x10^6/uL (3.50-5.40); RED CELL DISTRIBUTION WIDTH 13.7 % (11.5-14.5); WHITE BLOOD COUNT 8.7 x10^3/uL (4.0-11.0)
[2018-08-03 12:46] LABS: PREG TEST PT QUAL NEGATIVE (NEG)
[2018-08-03 12:56] LABS: ALBUMIN/GLOBULIN RATIO 1.1 (1.0-1.7); CALCIUM 9.4 mg/dL (8.5-10.1); CREATININE 0.9 mg/dL (0.6-1.0); GFR 72.1; MAGNESIUM 1.9 mg/dL (1.8-2.4); POTASSIUM 4.6 mmol/L (3.5-5.1); TOTAL BILIRUBIN 0.2 mg/dL (0.2-1.0); TOTAL PROTEIN 7.5 g/dL (6.4-8.2)
[2018-08-03] MEDS ORDERED: FURO-69 PO (13:08)
[2018-08-03] MEDS ORDERED: FUROSEMIDE 40 MG/4 ML VIAL IVP ONE (14:00)
--- NOTE | 2018-08-04 11:17 | EKG ---
[address] [address] Test Date: 2018-08-03 Test Time: 12:29:57 Pat Name: BARTOLOME JUAREZ Department: Room: Gender: F Environmental Services Attendant: : 1985 Requested By: BORIS GONZALES Order Number: [id number] Reading MD: Measurements Intervals [place] Rate: 63 P: 0 MA: 120 QRS: 44 QRSD: 82 T: 39 QT: 378 QTc: 390 Interpretive Statements SINUS RHYTHM NO SPECIFIC ECG ABNORMALITIES RI6.01 No previous ECG available for comparison
== END 2018-08-03 13:13 | disposition home or self-care (01) ==
LOC: ER 10:50
DX: R60.0 Localized edema (principal); F17.210 Nicotine dependence, cigarettes, uncomplicated; R07.9 Chest pain, unspecified; M79.605 Pain in left leg; M79.604 Pain in right leg; Z88.1 Allergy status to other antibiotic agents; Z88.2 Allergy status to sulfonamides; Z88.0 Allergy status to penicillin
CPT/HCPCS: 36415; 71045; 80053; 80307; 81001; 83735; 83880; 84484; 84703; 85025; 85610; 93005; 93925; 96374; 99285; J1940

== ENCOUNTER 2018-08-31 16:19 | Emergency (ER) | payer OTHER ==
[~2018-08-31] VITALS: Ht 167.6 cm; Wt 62.6 kg
[~2018-08-31 16:19] MED LIST changes: +FURO-69 PO
[2018-08-31] MEDS ORDERED: IV NORMAL SALINE 1,000ML 1,000 ML IV ONE (16:45)
[2018-08-31] MEDS ORDERED: ONDANSETRON ODT 4 MG TAB.RAPDIS PO ONE (17:00)
[2018-08-31] MEDS ORDERED: ONDANSETRON PF 4 MG/2 ML VIAL. IV ONE (17:00)
[2018-08-31 17:17] LABS: BASO # 0.1 x10^3/uL (0.0-0.2); BASO % 1 % (0-3); EOS # 0.1 x10^3/uL (0.0-0.7); EOS % 1 % (0-3); HEMOGLOBIN 14.4 g/dL (12.0-15.5); LYMPH # 2.6 x10^3/uL (1.0-4.8); LYMPH % 39 % (24-48); MEAN CORPUSCULAR HEMOGLOBIN 31 pg (25-35); MEAN CORPUSCULAR HGB CONC 34 g/dL (31-37); MEAN CORPUSCULAR VOLUME 90 fL (79-100); MONO # 0.3 x10^3/uL (0.0-1.1); MONO % 4 % (0-9); NEUT # 3.6 x10^3uL (1.8-7.7); NEUT % 55 % (31-73); PLATELET COUNT 339 x10^3/uL (140-400); RED BLOOD COUNT 4.67 x10^6/uL (3.50-5.40); WHITE BLOOD COUNT 6.6 x10^3/uL (4.0-11.0)
[2018-08-31 17:29] LABS: ALBUMIN 4.6 g/dL (3.4-5.0); ALBUMIN/GLOBULIN RATIO 1.4 (1.0-1.7); CALCIUM 10.3 mg/dL (8.5-10.1); CREATININE 0.9 mg/dL (0.6-1.0); GFR 72.1; POTASSIUM 3.9 mmol/L (3.5-5.1); TOTAL BILIRUBIN 0.5 mg/dL (0.2-1.0); TOTAL PROTEIN 7.8 g/dL (6.4-8.2)
[2018-08-31] MEDS ORDERED: ONDA8TAB9 PO (18:49)
[2018-08-31] MEDS ORDERED: HYDR-1179 PO (18:49)
[2018-08-31] MEDS ORDERED: CEPH-264 PO (18:49)
--- NOTE | 2018-08-31 18:53 | ED.ADGEN ---
Past History Past Medical History: IBS, UTI, Other Past Surgical History: No Surgical History Smoking: Cigarettes Alcohol Use: Sober Drug Use: Other Adult General Chief Complaint Chief Complaint ".. I ve been puking non stop ever since starting the Amoxicillin ( Augmentin).. My doctor started that for my infections... and also the Flagyl... " HPI HPI Patient is a 33 year old female who presents with above hx of persistent nausea and vomiting after starting Augmentin.for bacterial vaginosis. Pt. has had allergy to penicillin previously . Patient denies any intake of bad food. Patient denies any travel. Patient denies any specific ill contacts. Has been recently diagnosed with urinary tract infection. Patient denies any history immunosuppression. Review of Systems Review of Systems Constitutional: Denies fever or chills [] Eyes: Denies change in visual acuity, redness, or eye pain [] HENT: Denies nasal congestion or sore throat [] Respiratory: Denies cough or shortness of breath [] Cardiovascular: No additional information not addressed in HPI [] GI: Complaints abdominal pain, nausea, vomiting,. Denies bloody stools or diarrhea [] : Denies dysuria or hematuria [] Musculoskeletal: Denies back pain or joint pain [] Integument: Denies rash or skin lesions [] Neurologic: Denies headache, focal weakness or sensory changes [] Endocrine: Denies polyuria or polydipsia [] All other systems were reviewed and found to be within normal limits, except as documented in this note. Family History Family History Noncontributory presentation Current Medications Current Medications Current Medications Medications (Trade) Dose Ordered Sig/Kana Start Time Stop Time Status Last Admin Dose Admin Diphenhydramine HCl (Benadryl) 50 mg 1X ONCE 08/31/18 19:00 08/31/18 19:01 DC 08/31/18 19:22 50 MG Ondansetron HCl (Zofran Odt) 4 mg 1X ONCE 08/31/18 17:00 08/31/18 17:01 DC 08/31/18 16:58 4 MG Ondansetron HCl (Zofran) 4 mg 1X ONCE 08/31/18 17:00 08/31/18 17:01 DC 08/31/18 16:58 4 MG Prochlorperazine Edisylate (Compazine) 10 mg 1X ONCE 08/31/18 19:00 08/31/18 19:01 DC 08/31/18 19:22 10 MG Sodium Chloride 1,000 ml @ 1,000 mls/hr 1X ONCE 08/31/18 16:45 08/31/18 17:44 DC 08/31/18 16:58 1,000 MLS/HR Allergies Allergies Allergies Coded Allergies Type Severity Reaction Last Updated Verified doxycycline Allergy Severe 03/05/18 Yes Sulfa (Sulfonamide Antibiotics) Allergy Intermediate rash 04/18/16 Yes Penicillins Allergy Unknown rash 11/15/17 Yes Physical Exam Physical Exam Constitutional: in acute distress, non-toxic appearance. [] HENT: Normocephalic, atraumatic, bilateral external ears normal, oropharynx dry, no oral exudates, nose normal. [] Eyes: PERRLA, EOMI, conjunctiva normal, no discharge. [] Neck: Normal range of motion, no tenderness, supple, no stridor. [] Cardiovascular:Heart rate regular rhythm, no murmur [] Lungs & Thorax: Bilateral breath sounds clear to auscultation [] Abdomen: Bowel sounds hyperactive, soft, generalized tenderness, no masses, no pulsatile masses. [No focal rebound Skin: Warm, dry, no erythema, no rash. [] Back: No tenderness, no CVA tenderness. [] Extremities: No tenderness, no cyanosis, no clubbing, ROM intact, no edema. [] No psoas sign Neurologic: Alert and oriented X 3, normal motor function, normal sensory function, no focal deficits noted. [] Psychologic: Affect anxious, judgement normal, mood normal. [] Current Patient Data Vital Signs Vital Signs Date Time Temp Pulse Resp B/P (MAP) Pulse Ox O2 Delivery O2 Flow Rate FiO2 08/31/18 19:40 98.1 85 18 119/81 (94) 100 Room Air Lab Results Laboratory Tests Test 08/31/18 16:59 White Blood Count 6.6 x10^3/uL (4.0-11.0) Red Blood Count 4.67 x10^6/uL (3.50-5.40) Hemoglobin 14.4 g/dL (12.0-15.5) Hematocrit 42.0 % (36.0-47.0) Mean Corpuscular Volume 90 fL (79-100) Mean Corpuscular Hemoglobin 31 pg (25-35) Mean Corpuscular Hemoglobin Concent 34 g/dL (31-37) Red Cell Distribution Width 14.0 % (11.5-14.5) Platelet Count 339 x10^3/uL (140-400) Neutrophils (%) (Auto) 55 % (31-73) Lymphocytes (%) (Auto) 39 % (24-48) Monocytes (%) (Auto) 4 % (0-9) Eosinophils (%) (Auto) 1 % (0-3) Basophils (%) (Auto) 1 % (0-3) Neutrophils # (Auto) 3.6 x10^3uL (1.8-7.7) Lymphocytes # (Auto) 2.6 x10^3/uL (1.0-4.8) Monocytes # (Auto) 0.3 x10^3/uL (0.0-1.1) Eosinophils # (Auto) 0.1 x10^3/uL (0.0-0.7) Basophils # (Auto) 0.1 x10^3/uL (0.0-0.2) Sodium Level 140 mmol/L (136-145) Potassium Level 3.9 mmol/L (3.5-5.1) Chloride Level 103 mmol/L (98-107) Carbon Dioxide Level 22 mmol/L (21-32) Anion Gap 15 (6-14) H Blood Urea Nitrogen 11 mg/dL (7-20) Creatinine 0.9 mg/dL (0.6-1.0) Estimated GFR (Cockcroft-Gault) 72.1 BUN/Creatinine Ratio 12 (6-20) Glucose Level 111 mg/dL (70-99) H Calcium Level 10.3 mg/dL (8.5-10.1) H Total Bilirubin 0.5 mg/dL (0.2-1.0) Aspartate Amino Transferase (AST) 20 U/L (15-37) Alanine Aminotransferase (ALT) 30 U/L (14-59) Alkaline Phosphatase 33 U/L (46-116) L Total Protein 7.8 g/dL (6.4-8.2) Albumin 4.6 g/dL (3.4-5.0) Albumin/Globulin Ratio 1.4 (1.0-1.7) EKG EKG [] Radiology/Procedures Radiology/Procedures [] Course & Med Decision Making Course & Med Decision Making Pertinent Labs and Imaging studies reviewed. (See chart for details) Patient's symptoms resolved with fluids and Zofran. Patient to stop the Augmentin. Will start on Keflex since she reportedly has tolerated this antibiotic before. Patient follow-up pending cultures. Patient push fluids. Clear fluid diet for the next 2 days. No solid or milk products. Return if any concerns. Patient take Zofran as needed for nausea and vomiting. Advised patient to not consume any alcohol with for Flagyl use. Patient follow-up primary care. Patient return if any concerns. [] Final Impression Final Impression 1. Nausea, Vomiting 2. Hx. Vaginal Discharge[] 3. Suspect intolerance to Augmentin 4. Hx UTI Dragon Disclaimer Dragon Disclaimer This electronic medical record was generated, in whole or in part, using a voice recognition dictation system. Discharge Summary Visit Information Final Diagnosis Problems Medical Problems: (1) Nausea and vomiting Status: Acute Brief Hospital Course Allergies Allergies Coded Allergies Type Severity Reaction Last Updated Verified doxycycline Allergy Severe 03/05/18 Yes Sulfa (Sulfonamide Antibiotics) Allergy Intermediate rash 04/18/16 Yes Penicillins Allergy Unknown rash 11/15/17 Yes Vital Signs Vital Signs Date Time Temp Pulse Resp B/P (MAP) Pulse Ox O2 Delivery O2 Flow Rate FiO2 08/31/18 19:40 98.1 85 18 119/81 (94) 100 Room Air Lab Results Laboratory Tests Test 08/31/18 16:59 White Blood Count 6.6 x10^3/uL (4.0-11.0) Red Blood Count 4.67 x10^6/uL (3.50-5.40) Hemoglobin 14.4 g/dL (12.0-15.5) Hematocrit 42.0 % (36.0-47.0) Mean Corpuscular Volume 90 fL (79-100) Mean Corpuscular Hemoglobin 31 pg (25-35) Mean Corpuscular Hemoglobin Concent 34 g/dL (31-37) Red Cell Distribution Width 14.0 % (11.5-14.5) Platelet Count 339 x10^3/uL (140-400) Neutrophils (%) (Auto) 55 % (31-73) Lymphocytes (%) (Auto) 39 % (24-48) Monocytes (%) (Auto) 4 % (0-9) Eosinophils (%) (Auto) 1 % (0-3) Basophils (%) (Auto) 1 % (0-3) Neutrophils # (Auto) 3.6 x10^3uL (1.8-7.7) Lymphocytes # (Auto) 2.6 x10^3/uL (1.0-4.8) Monocytes # (Auto) 0.3 x10^3/uL (0.0-1.1) Eosinophils # (Auto) 0.1 x10^3/uL (0.0-0.7) Basophils # (Auto) 0.1 x10^3/uL (0.0-0.2) Sodium Level 140 mmol/L (136-145) Potassium Level 3.9 mmol/L (3.5-5.1) Chloride Level 103 mmol/L (98-107) Carbon Dioxide Level 22 mmol/L (21-32) Anion Gap 15 (6-14) Blood Urea Nitrogen 11 mg/dL (7-20) Creatinine 0.9 mg/dL (0.6-1.0) Estimated GFR (Cockcroft-Gault) 72.1 BUN/Creatinine Ratio 12 (6-20) Glucose Level 111 mg/dL (70-99) Calcium Level 10.3 mg/dL (8.5-10.1) Total Bilirubin 0.5 mg/dL (0.2-1.0) Aspartate Amino Transf (AST/SGOT) 20 U/L (15-37) Alanine Aminotransferase (ALT/SGPT) 30 U/L (14-59) Alkaline Phosphatase 33 U/L (46-116) Total Protein 7.8 g/dL (6.4-8.2) Albumin 4.6 g/dL (3.4-5.0) Albumin/Globulin Ratio 1.4 (1.0-1.7) Brief Hospital Course Ms. Lamar is a 33 old female who presented with nausea and vomiting after starting Augmentin. Suspect intolerance to Augmentin. Discharge Information Condition at Discharge: Improved, Stable Disposition/Orders: D/C to Home Dischare Medications Current Medications Ondansetron HCl (Zofran Odt) 4 mg 1X ONCE PO Last administered on 08/31/18at 16:58; Admin Dose 4 MG; Start 08/31/18 at 17:00; Stop 08/31/18 at 17:01; Status DC Sodium Chloride 1,000 ml @ 1,000 mls/hr 1X ONCE IV Last administered on 08/31/18at 16:58; Admin Dose 1,000 MLS/HR; Start 08/31/18 at 16:45; Stop 08/31/18 at 17:44; Status DC Ondansetron HCl (Zofran) 4 mg 1X ONCE IV Last administered on 08/31/18at 16:58; Admin Dose 4 MG; Start 08/31/18 at 17:00; Stop 08/31/18 at 17:01; Status DC Diphenhydramine HCl (Benadryl) 50 mg 1X ONCE IVP Last administered on 08/31/18at 19:22; Admin Dose 50 MG; Start 08/31/18 at 19:00; Stop 08/31/18 at 19:01; Status DC Prochlorperazine Edisylate (Compazine) 10 mg 1X ONCE IV Last administered on 08/31/18at 19:22; Admin Dose 10 MG; Start 08/31/18 at 19:00; Stop 08/31/18 at 19:01; Status DC Active Scripts Active Zofran (Ondansetron Hcl) 8 Mg Tablet 8 Mg PO QIDPRN PRN Keflex (Cephalexin) 500 Mg Capsule 500 Mg PO TID 10 Days Hydrocodone-Ibuprofen 7.5-200 (Hydrocodone/Ibuprofen) 1 Each Tablet 1 Tab PO PRN Q6HRS PRN Lasix (Furosemide) 20 Mg Tablet 1 Tab PO DAILY Keflex (Cephalexin) 500 Mg Capsule 1 Cap PO TID Diflucan (Fluconazole) 150 Mg Tablet 1 Tab PO ONCE Permethrin 60 Gm Cream..g. 1 Radha TP ONCE Permethrin 60 Gm Cream..g. 60 Gm TP TWICE WEEKLY Clindamycin Hcl 300 Mg Capsule 300 Mg PO TID 10 Days Aamir Disclaimer This chart was dictated in whole or in part using Voice Recognition software in a busy, high-work load, and often noisy Emergency Department environment. It may contain unintended and wholly unrecognized errors or omissions. LUCILA ESPINAL MD Aug 31, 2018 18:53
[2018-08-31] MEDS ORDERED: diphenhydrAMINE 50 MG/ML VIAL IVP ONE (19:00)
[2018-08-31] MEDS ORDERED: PROCHLORPERAZINE 10 MG/2 ML VIAL. IV ONE (19:00)
[2018-08-31 19:40] VITALS: BP 119/81
== END 2018-08-31 19:40 | disposition home or self-care (01) ==
LOC: ER 16:19
DX: R11.2 Nausea with vomiting, unspecified (principal); R10.84 Generalized abdominal pain; K58.9 Irritable bowel syndrome, unspecified; F17.210 Nicotine dependence, cigarettes, uncomplicated; Z87.440 Personal history of urinary (tract) infections; Z88.2 Allergy status to sulfonamides; Z88.0 Allergy status to penicillin; Z88.1 Allergy status to other antibiotic agents
CPT/HCPCS: 36415; 80053; 85025; 96374; 96375; 99284; J0780; J1200; J2405; Q0162; J7030

== ENCOUNTER 2018-09-09 20:25 | Emergency (ER) | payer OTHER ==
[~2018-09-09] VITALS: Ht 167.6 cm; Wt 56.3 kg
[~2018-09-09 20:25] MED LIST changes: +HYDR-1179 PO; +ONDA8TAB9 PO
--- NOTE | 2018-09-09 20:27 | ED.ADGEN ---
Past History Past Medical History: IBS, UTI, Other Past Surgical History: No Surgical History Smoking: Cigarettes Alcohol Use: Sober Drug Use: Other Adult General Chief Complaint Chief Complaint ".. I still getting insect bites or scabies.." " i ve had them before..." HPI HPI Patient is a 33 year old female who presents with above hx and complaints generalized insect bites. Patient insect bite pattern does have some characteristics of scabies. Also has some components of which appears fleabites. Patient denies any specific ill contacts. No recent travel. Roommate does have a cat. They live in a home that the patient previously treated for insects. Patient normally follows with primary that has written for permethrin in the past. Patient has picked some of the bite moreno and respirations appear to be getting inflamed. No history immunosuppression. Recent tetanus is up-to-date. Review of Systems Review of Systems Constitutional: Denies fever or chills [] Eyes: Denies change in visual acuity, redness, or eye pain [] HENT: Denies nasal congestion or sore throat [] Respiratory: Denies cough or shortness of breath [] Cardiovascular: No additional information not addressed in HPI [] GI: Denies abdominal pain, nausea, vomiting, bloody stools or diarrhea [] : Denies dysuria or hematuria [] Musculoskeletal: Denies back pain or joint pain [] Integument: Denies rash or skin lesions []complaints of insect bites Neurologic: Denies headache, focal weakness or sensory changes [] Endocrine: Denies polyuria or polydipsia [] All other systems were reviewed and found to be within normal limits, except as documented in this note. Family History Family History Noncontributory Current Medications Current Medications See nursing for home meds Allergies Allergies Allergies Coded Allergies Type Severity Reaction Last Updated Verified doxycycline Allergy Severe 03/05/18 Yes Sulfa (Sulfonamide Antibiotics) Allergy Intermediate rash 04/18/16 Yes Penicillins Allergy Unknown rash 11/15/17 Yes Physical Exam Physical Exam Constitutional: Moderate acute distress, non-toxic appearance. [] HENT: Normocephalic, atraumatic, bilateral external ears normal, oropharynx moist, no oral exudates, nose normal. [] Eyes: PERRLA, EOMI, conjunctiva normal, no discharge. [] Neck: Normal range of motion, no tenderness, supple, no stridor. [] Cardiovascular:Heart rate regular rhythm, no murmur [] Lungs & Thorax: Bilateral breath sounds clear to auscultation [] Abdomen: Bowel sounds normal, soft, no tenderness, no masses, no pulsatile mass es. [] Skin: Warm, dry, no erythema, no rash. [] Multiple insect bites Back: No tenderness, no CVA tenderness. [] Extremities: No tenderness, no cyanosis, no clubbing, ROM intact, no edema. [] Neurologic: Alert and oriented X 3, normal motor function, normal sensory function, no focal deficits noted. [] Psychologic: Affect normal, judgement normal, mood normal. [] Current Patient Data Vital Signs Vital Signs Date Time Temp Pulse Resp B/P (MAP) Pulse Ox O2 Delivery O2 Flow Rate FiO2 09/09/18 20:43 98.2 82 18 99 Room Air Lab Results Laboratory Tests Test 09/09/18 21:02 09/09/18 21:14 Urine Collection Type Unknown Urine Color [place] Urine Clarity Hazy Urine pH 6.0 Urine Specific [place] >=1.030 Urine Protein 30 mg/dl (NEG-TRACE) Urine Glucose (UA) Neg mg/dL (NEG) Urine Ketones (Stick) Neg mg/dL (NEG) Urine Blood Neg (NEG) Urine Nitrite Neg (NEG) Urine Bilirubin Neg (NEG) Urine Urobilinogen Dipstick 0.2 mg/dL (0.2 mg/dL) Urine Leukocyte Esterase Neg (NEG) Urine RBC 0 /HPF (0-2) Urine WBC 0 /HPF (0-4) Urine Squamous Epithelial Cells Occ /LPF Urine Bacteria 0 /HPF (0-FEW) Urine Opiates Screen Neg (NEG) Urine Methadone Screen Neg (NEG) Urine Barbiturates Neg (NEG) Urine Phencyclidine Screen Neg (NEG) Urine Amphetamine/Methamphetamine Pos (NEG) Urine Benzodiazepines Screen Neg (NEG) Urine Cocaine Screen Neg (NEG) Urine Cannabinoids Screen Neg (NEG) Urine Ethyl Alcohol Neg (NEG) POC Urine HCG, Qualitative hcg negative (Negative) EKG EKG [] Radiology/Procedures Radiology/Procedures [] Course & Med Decision Making Course & Med Decision Making Pertinent Labs and Imaging studies reviewed. (See chart for details). Patient not to scratch or pick at bites. Patient apply Polysporin 4 times a day to the bites massage in. Patient to repeat treatment permethrin. Patient to treat house for fleas and insects. Patient washed bedding. Patient return of any concerns. Patient follow-up primary care. [] Final Impression Final Impression 1. Insect bites[] 2. Urine + for Methamphetamine Dragon Disclaimer Dragon Disclaimer This electronic medical record was generated, in whole or in part, using a voice recognition dictation system. Discharge Summary Visit Information Final Diagnosis Problems Medical Problems: (1) Insect bite Status: Acute (2) Scabies Status: Acute Brief Hospital Course Allergies Allergies Coded Allergies Type Severity Reaction Last Updated Verified doxycycline Allergy Severe 03/05/18 Yes Sulfa (Sulfonamide Antibiotics) Allergy Intermediate rash 04/18/16 Yes Penicillins Allergy Unknown rash 11/15/17 Yes Vital Signs Vital Signs Date Time Temp Pulse Resp B/P (MAP) Pulse Ox O2 Delivery O2 Flow Rate FiO2 09/09/18 20:43 98.2 82 18 99 Room Air Lab Results Laboratory Tests Test 09/09/18 21:02 09/09/18 21:14 Urine Collection Type Unknown Urine Color Dinah Urine Clarity Hazy Urine pH 6.0 Urine Specific [place] >=1.030 Urine Protein 30 mg/dl (NEG-TRACE) Urine Glucose (UA) Neg mg/dL (NEG) Urine Ketones (Stick) Neg mg/dL (NEG) Urine Blood Neg (NEG) Urine Nitrite Neg (NEG) Urine Bilirubin Neg (NEG) Urine Urobilinogen Dipstick 0.2 mg/dL (0.2 mg/dL) Urine Leukocyte Esterase Neg (NEG) Urine RBC 0 /HPF (0-2) Urine WBC 0 /HPF (0-4) Urine Squamous Epithelial Cells Occ /LPF Urine Bacteria 0 /HPF (0-FEW) Urine Opiates Screen Neg (NEG) Urine Methadone Screen Neg (NEG) Urine Barbiturates Neg (NEG) Urine Phencyclidine Screen Neg (NEG) Urine Amphetamine/Methamphetamine Pos (NEG) Urine Benzodiazepines Screen Neg (NEG) Urine Cocaine Screen Neg (NEG) Urine Cannabinoids Screen Neg (NEG) Urine Ethyl Alcohol Neg (NEG) Bedside Urine HCG, Qualitative hcg negative (Negative) Brief Hospital Course Ms. Lamar is a 33 old female who presented with above hx and complaints. Discharge Information Condition at Discharge: Stable Disposition/Orders: D/C to Home Dischare Medications Active Scripts Active Permethrin 60 Gm Cream..g. 60 Gm TP 3X/WEEK 10 Days Zofran (Ondansetron Hcl) 8 Mg Tablet 8 Mg PO QIDPRN PRN Keflex (Cephalexin) 500 Mg Capsule 500 Mg PO TID 10 Days Hydrocodone-Ibuprofen 7.5-200 (Hydrocodone/Ibuprofen) 1 Each Tablet 1 Tab PO PRN Q6HRS PRN Lasix (Furosemide) 20 Mg Tablet 1 Tab PO DAILY Keflex (Cephalexin) 500 Mg Capsule 1 Cap PO TID Diflucan (Fluconazole) 150 Mg Tablet 1 Tab PO ONCE Permethrin 60 Gm Cream..g. 1 Radha TP ONCE Permethrin 60 Gm Cream..g. 60 Gm TP TWICE WEEKLY Clindamycin Hcl 300 Mg Capsule 300 Mg PO TID 10 Days Aamir Disclaimer This chart was dictated in whole or in part using Voice Recognition software in a busy, high-work load, and often noisy Emergency Department environment. It may contain unintended and wholly unrecognized errors or omissions. LUCILA ESPINAL MD Sep 09, 2018 20:27
[2018-09-09 20:43] VITALS: BP 132/85
[2018-09-09] MEDS ORDERED: PERM60CR12 TP (21:12)
[2018-09-09 21:25] LABS: BARBITURATES NEG (NEG); BENZODIAZEPINES NEG (NEG); CANNABINOIDS NEG (NEG); COCAINE NEG (NEG); METHADONE NEG (NEG); OPIATES NEG (NEG); PHENCYCLIDINE NEG (NEG)
[2018-09-09 21:26] LABS: AMPHETAMINE/METHAMPHETAMINE POS (NEG)
[2018-09-09 21:31] LABS: BACTERIA,URINE 0 /HPF (0-FEW); BILIRUBIN,URINE NEG (NEG); CLARITY,URINE HAZY; COLOR,URINE AMBER; GLUCOSE,URINE NEG (NEG); NITRITE,URINE NEG (NEG); RBC,URINE 0 /HPF (0-2); SQUAMOUS EPITHELIAL CELL,UR OCC /LPF; UROBILINOGEN,URINE 0.2 mg/dL (0.2 mg/dL); WBC,URINE 0 /HPF (0-4)
== END 2018-09-09 21:24 | disposition home or self-care (01) ==
LOC: ER 20:25
DX: T14.8XXA Other injury of unspecified body region, initial encounter (principal); B86 Scabies; F17.210 Nicotine dependence, cigarettes, uncomplicated; K58.9 Irritable bowel syndrome, unspecified; Z88.1 Allergy status to other antibiotic agents; Z88.2 Allergy status to sulfonamides; Z88.0 Allergy status to penicillin; W57.XXXA Bitten or stung by nonvenomous insect and other nonvenomous arthropods, initial encounter; Y93.89 Activity, other specified; Y92.89 Other specified places as the place of occurrence of the external cause; Y99.8 Other external cause status
CPT/HCPCS: 36415; 80307; 81001; 81025; 99284

== ENCOUNTER 2018-09-20 20:01 | Emergency (ER) | payer OTHER ==
[~2018-09-20] VITALS: Ht 167.6 cm; Wt 55.2 kg
--- NOTE | 2018-09-20 20:04 | ED.ADGEN ---
Past History Past Medical History: IBS, UTI, Other Past Surgical History: Tubal ligation Smoking: Cigarettes Alcohol Use: Sober Drug Use: Other Adult General Chief Complaint Chief Complaint ".. I hurting really bad down in my vaginal area.. and when I pee.. We had rough sex earlier this morning.. and I ve been hurting ever since..." HPI HPI Patient is a 33 year old female who presents with above hx and complaints of dysuria and vaginal pain. Pt. denies history of previous STDs. Only reportedly 1 lifetime sex partner. No recent travel. No specific ill contacts. No history immunosuppression depression. Has had past history of urinary tract infection. Normally follows with Dr. Rangel. Review of Systems Review of Systems Constitutional: Denies fever or chills [] Eyes: Denies change in visual acuity, redness, or eye pain [] HENT: Denies nasal congestion or sore throat [] Respiratory: Denies cough or shortness of breath [] Cardiovascular: No additional information not addressed in HPI [] GI: Denies abdominal pain, nausea, vomiting, bloody stools or diarrhea [] : Complaints of dysuria and hematuria [] Complaints of vaginal pain. Musculoskeletal: Denies back pain or joint pain [] Integument: Denies rash or skin lesions [] Neurologic: Denies headache, focal weakness or sensory changes [] Endocrine: Denies polyuria or polydipsia [] All other systems were reviewed and found to be within normal limits, except as documented in this note. Family History Family History Non-contributory Current Medications Current Medications Current Medications Medications (Trade) Dose Ordered Sig/Kana Start Time Stop Time Status Last Admin Dose Admin Cephalexin HCl (Keflex) 500 mg 1X ONCE 09/20/18 22:00 09/20/18 22:01 DC 09/20/18 21:45 500 MG Famotidine (Pepcid Vial) 20 mg 1X ONCE 09/20/18 20:30 09/20/18 20:31 DC 09/20/18 21:45 20 MG Ketorolac Tromethamine (Toradol 30mg Vial) 30 mg 1X ONCE 09/20/18 22:00 09/20/18 22:01 DC 09/20/18 21:47 30 MG Lactated Ringer's 1,000 ml @ 1,000 mls/hr Q1H 7/20/19 20:30 09/20/18 21:29 DC 09/20/18 21:48 1,000 MLS/HR Morphine Sulfate (Morphine 10mg Syringe) 10 mg 1X ONCE 09/20/18 21:15 09/20/18 21:16 DC 09/20/18 21:47 10 MG Ondansetron HCl (Zofran) 8 mg 1X ONCE 09/20/18 20:30 09/20/18 20:31 DC 09/20/18 21:46 8 MG Phenazopyridine HCl (Pyridium) 200 mg 1X ONCE 09/20/18 22:00 09/20/18 22:01 DC 09/20/18 21:44 200 MG Allergies Allergies Allergies Coded Allergies Type Severity Reaction Last Updated Verified doxycycline Allergy Severe 03/05/18 Yes Sulfa (Sulfonamide Antibiotics) Allergy Intermediate rash 04/18/16 Yes Penicillins Allergy Unknown rash 11/15/17 Yes Physical Exam Physical Exam Constitutional: in acute distress, non-toxic appearance. [] HENT: Normocephalic, atraumatic, bilateral external ears normal, oropharynx moist, no oral exudates, nose normal. [] Eyes: PERRLA, EOMI, conjunctiva normal, no discharge. [] Neck: Normal range of motion, no tenderness, supple, no stridor. [] Cardiovascular:Heart rate regular rhythm, no murmur [] Lungs & Thorax: Bilateral breath sounds equal apex with scattered wheezes on auscultation [] Abdomen: Bowel sounds normal, soft, no tenderness, no masses, no pulsatile masses. Vaginal area inflammation, cervicitis, cervical motion tenderness. Rectal hard stool. Old surgical scars. Skin: Warm, dry, no erythema, no rash. [] Back: No tenderness, no CVA tenderness. [] Extremities: No tenderness, no cyanosis, no clubbing, ROM intact, no edema. [] Neurologic: Alert and oriented X 3, normal motor function, normal sensory function, no focal deficits noted. [] Psychologic: Affect anxious, judgement normal, mood normal. [] Current Patient Data Vital Signs Vital Signs Date Time Temp Pulse Resp B/P (MAP) Pulse Ox O2 Delivery O2 Flow Rate FiO2 09/20/18 20:10 98.5 104 20 140/90 (107) 99 Room Air Lab Results Laboratory Tests Test 09/20/18 20:11 09/20/18 20:25 7/20/19 22:05 Urine Collection Type Unknown Urine Color [place] Urine Clarity Cloudy Urine pH 6.0 Urine Specific [place] 1.020 Urine Protein >100 mg/dl (NEG-TRACE) Urine Glucose (UA) Neg mg/dL (NEG) Urine Ketones (Stick) Trace mg/dL (NEG) Urine Blood Large (NEG) Urine Nitrite Pos (NEG) Urine Bilirubin Neg (NEG) Urine Urobilinogen Dipstick 1 mg/dL (0.2 mg/dL) Urine Leukocyte Esterase Large (NEG) Urine RBC Tntc /HPF (0-2) Urine WBC 1-4 /HPF (0-4) Urine Squamous Epithelial Cells Occ /LPF Urine Bacteria 0 /HPF (0-FEW) Urine Opiates Screen Neg (NEG) Urine Methadone Screen Neg (NEG) Urine Barbiturates Neg (NEG) Urine Phencyclidine Screen Neg (NEG) Urine Amphetamine/Methamphetamine Pos (NEG) Urine Benzodiazepines Screen Neg (NEG) Urine Cocaine Screen Neg (NEG) Urine Cannabinoids Screen Neg (NEG) Urine Ethyl Alcohol Neg (NEG) POC Urine HCG, Qualitative hcg negative (Negative) White Blood Count 13.4 x10^3/uL (4.0-11.0) H Red Blood Count 4.81 x10^6/uL (3.50-5.40) Hemoglobin 14.7 g/dL (12.0-15.5) Hematocrit 44.4 % (36.0-47.0) Mean Corpuscular Volume 92 fL (79-100) Mean Corpuscular Hemoglobin 31 pg (25-35) Mean Corpuscular Hemoglobin Concent 33 g/dL (31-37) Red Cell Distribution Width 14.6 % (11.5-14.5) H Platelet Count 310 x10^3/uL (140-400) Neutrophils (%) (Auto) 65 % (31-73) Lymphocytes (%) (Auto) 22 % (24-48) L Monocytes (%) (Auto) 9 % (0-9) Eosinophils (%) (Auto) 3 % (0-3) Basophils (%) (Auto) 1 % (0-3) Neutrophils # (Auto) 8.7 x10^3uL (1.8-7.7) H Lymphocytes # (Auto) 2.9 x10^3/uL (1.0-4.8) Monocytes # (Auto) 1.2 x10^3/uL (0.0-1.1) H Eosinophils # (Auto) 0.4 x10^3/uL (0.0-0.7) Basophils # (Auto) 0.1 x10^3/uL (0.0-0.2) Prothrombin Time 9.3 SEC (9.4-11.4) L Prothrombin Time INR 0.9 (0.9-1.1) PTT 24 SEC (23-33) Sodium Level 138 mmol/L (136-145) Potassium Level 3.8 mmol/L (3.5-5.1) Chloride Level 99 mmol/L (98-107) Carbon Dioxide Level 29 mmol/L (21-32) Anion Gap 10 (6-14) Blood Urea Nitrogen 8 mg/dL (7-20) Creatinine 0.9 mg/dL (0.6-1.0) Estimated GFR (Cockcroft-Gault) 72.1 Glucose Level 96 mg/dL (70-99) Calcium Level 10.2 mg/dL (8.5-10.1) H Total Bilirubin 0.2 mg/dL (0.2-1.0) Direct Bilirubin 0.1 mg/dL (0.0-0.2) Aspartate Amino Transferase (AST) 23 U/L (15-37) Alanine Aminotransferase (ALT) 29 U/L (14-59) Alkaline Phosphatase 38 U/L (46-116) L Total Protein 8.4 g/dL (6.4-8.2) H Albumin 4.6 g/dL (3.4-5.0) Amylase Level 42 U/L (25-115) Lipase 86 U/L (73-393) Microbiology 09/20/18 Wet Prep - Final, Complete Microbiology 09/20/18 Wet Prep - Final, Complete EKG EKG [] Radiology/Procedures Radiology/Procedures [] Course & Med Decision Making Course & Med Decision Making Pertinent Labs and Imaging studies reviewed. (See chart for details) Patient push vitamin C drinks. Patient have pelvic rest. Patient to practice safe sex. Patient follow-up pending cultures and labs. Patient follow-up primary care. Patient take Tylenol and ibuprofen for pain. Patient take Keflex 500 mg 3 times a day. [] Final Impression Final Impression 1. UTI 2. Cervicitis 3. Tobacco 4. Drug Screen + Amphetamines[] 5. Mild Leukocytosis 13.4 Dragon Disclaimer Dragon Disclaimer This electronic medical record was generated, in whole or in part, using a voice recognition dictation system. Discharge Summary Visit Information Final Diagnosis Problems Medical Problems: (1) Dysuria Status: Acute (2) Urinary tract infection Status: Acute (3) Vaginal pain Status: Acute Brief Hospital Course Allergies Allergies Coded Allergies Type Severity Reaction Last Updated Verified doxycycline Allergy Severe 03/05/18 Yes Sulfa (Sulfonamide Antibiotics) Allergy Intermediate rash 04/18/16 Yes Penicillins Allergy Unknown rash 11/15/17 Yes Vital Signs Vital Signs Date Time Temp Pulse Resp B/P (MAP) Pulse Ox O2 Delivery O2 Flow Rate FiO2 09/20/18 20:10 98.5 104 20 140/90 (107) 99 Room Air Lab Results Laboratory Tests Test 09/20/18 20:11 09/20/18 20:25 09/20/18 22:05 Urine Collection Type Unknown Urine Color [place] Urine Clarity Cloudy Urine pH 6.0 Urine Specific [place] 1.020 Urine Protein >100 mg/dl (NEG-TRACE) Urine Glucose (UA) Neg mg/dL (NEG) Urine Ketones (Stick) Trace mg/dL (NEG) Urine Blood Large (NEG) Urine Nitrite Pos (NEG) Urine Bilirubin Neg (NEG) Urine Urobilinogen Dipstick 1 mg/dL (0.2 mg/dL) Urine Leukocyte Esterase Large (NEG) Urine RBC Tntc /HPF (0-2) Urine WBC 1-4 /HPF (0-4) Urine Squamous Epithelial Cells Occ /LPF Urine Bacteria 0 /HPF (0-FEW) Urine Opiates Screen Neg (NEG) Urine Methadone Screen Neg (NEG) Urine Barbiturates Neg (NEG) Urine Phencyclidine Screen Neg (NEG) Urine Amphetamine/Methamphetamine Pos (NEG) Urine Benzodiazepines Screen Neg (NEG) Urine Cocaine Screen Neg (NEG) Urine Cannabinoids Screen Neg (NEG) Urine Ethyl Alcohol Neg (NEG) Bedside Urine HCG, Qualitative hcg negative (Negative) White Blood Count 13.4 x10^3/uL (4.0-11.0) Red Blood Count 4.81 x10^6/uL (3.50-5.40) Hemoglobin 14.7 g/dL (12.0-15.5) Hematocrit 44.4 % (36.0-47.0) Mean Corpuscular Volume 92 fL (79-100) Mean Corpuscular Hemoglobin 31 pg (25-35) Mean Corpuscular Hemoglobin Concent 33 g/dL (31-37) Red Cell Distribution Width 14.6 % (11.5-14.5) Platelet Count 310 x10^3/uL (140-400) Neutrophils (%) (Auto) 65 % (31-73) Lymphocytes (%) (Auto) 22 % (24-48) Monocytes (%) (Auto) 9 % (0-9) Eosinophils (%) (Auto) 3 % (0-3) Basophils (%) (Auto) 1 % (0-3) Neutrophils # (Auto) 8.7 x10^3uL (1.8-7.7) Lymphocytes # (Auto) 2.9 x10^3/uL (1.0-4.8) Monocytes # (Auto) 1.2 x10^3/uL (0.0-1.1) Eosinophils # (Auto) 0.4 x10^3/uL (0.0-0.7) Basophils # (Auto) 0.1 x10^3/uL (0.0-0.2) Prothrombin Time 9.3 SEC (9.4-11.4) Prothromb Time International Ratio 0.9 (0.9-1.1) Activated Partial Thromboplast Time 24 SEC (23-33) Sodium Level 138 mmol/L (136-145) Potassium Level 3.8 mmol/L (3.5-5.1) Chloride Level 99 mmol/L (98-107) Carbon Dioxide Level 29 mmol/L (21-32) Anion Gap 10 (6-14) Blood Urea Nitrogen 8 mg/dL (7-20) Creatinine 0.9 mg/dL (0.6-1.0) Estimated GFR (Cockcroft-Gault) 72.1 Glucose Level 96 mg/dL (70-99) Calcium Level 10.2 mg/dL (8.5-10.1) Total Bilirubin 0.2 mg/dL (0.2-1.0) Direct Bilirubin 0.1 mg/dL (0.0-0.2) Aspartate Amino Transf (AST/SGOT) 23 U/L (15-37) Alanine Aminotransferase (ALT/SGPT) 29 U/L (14-59) Alkaline Phosphatase 38 U/L (46-116) Total Protein 8.4 g/dL (6.4-8.2) Albumin 4.6 g/dL (3.4-5.0) Amylase Level 42 U/L (25-115) Lipase 86 U/L (73-393) Brief Hospital Course Ms. Lamar is a 33 old female who presented with UTI and cervicitis. Discharge Information Condition at Discharge: Improved, Stable Disposition/Orders: D/C to Home Dischare Medications Current Medications Lactated Ringer's 1,000 ml @ 1,000 mls/hr Q1H IV Last administered on 09/20/18at 21:48; Admin Dose 1,000 MLS/HR; Start 09/20/18 at 20:30; Stop 09/20/18 at 21:29; Status DC Ondansetron HCl (Zofran) 8 mg 1X ONCE IV Last administered on 09/20/18at 21:46; Admin Dose 8 MG; Start 09/20/18 at 20:30; Stop 09/20/18 at 20:31; Status DC Famotidine (Pepcid Vial) 20 mg 1X ONCE IVP Last administered on 09/20/18at 21:45; Admin Dose 20 MG; Start 09/20/18 at 20:30; Stop 09/20/18 at 20:31; Status DC Morphine Sulfate (Morphine 10mg Syringe) 10 mg 1X ONCE SQ Last administered on 09/20/18at 21:47; Admin Dose 10 MG; Start 09/20/18 at 21:15; Stop 09/20/18 at 21:16; Status DC Cephalexin HCl (Keflex) 500 mg 1X ONCE PO Last administered on 09/20/18at 21:45; Admin Dose 500 MG; Start 09/20/18 at 22:00; Stop 09/20/18 at 22:01; Status DC Ketorolac Tromethamine (Toradol 30mg Vial) 30 mg 1X ONCE IV Last administered on 09/20/18at 21:47; Admin Dose 30 MG; Start 09/20/18 at 22:00; Stop 09/20/18 at 22:01; Status DC Phenazopyridine HCl (Pyridium) 200 mg 1X ONCE PO Last administered on 09/20/18at 21:44; Admin Dose 200 MG; Start 09/20/18 at 22:00; Stop 09/20/18 at 22:01; Status DC Active Scripts Active Diflucan (Fluconazole) 100 Mg Tablet 100 Mg PO DAILY 3 Days Keflex (Cephalexin) 500 Mg Capsule 500 Mg PO TID 10 Days Aamir Disclaimer This chart was dictated in whole or in part using Voice Recognition software in a busy, high-work load, and often noisy Emergency Department environment. It may contain unintended and wholly unrecognized errors or omissions. LUCILA ESPINAL MD Sep 20, 2018 20:04
[2018-09-20] MEDS ORDERED: FAMOTIDINE 20 MG/2 ML VIAL IVP ONE (20:30)
[2018-09-20] MEDS ORDERED: IV RINGERS SOLUTION,LACTATED 1,000 ML IV SCH (20:30)
[2018-09-20] MEDS ORDERED: ONDANSETRON PF 4 MG/2 ML VIAL. IV ONE (20:30)
[2018-09-20 20:42] LABS: AMPHETAMINE/METHAMPHETAMINE POS (NEG)
[2018-09-20 20:43] LABS: BARBITURATES NEG (NEG); BENZODIAZEPINES NEG (NEG); CANNABINOIDS NEG (NEG); COCAINE NEG (NEG); METHADONE NEG (NEG); OPIATES NEG (NEG); PHENCYCLIDINE NEG (NEG)
[2018-09-20 20:52] LABS: CLARITY,URINE CLOUDY; COLOR,URINE PINK
[2018-09-20 20:53] LABS: BACTERIA,URINE 0 /HPF (0-FEW); BILIRUBIN,URINE NEG (NEG); GLUCOSE,URINE NEG (NEG); NITRITE,URINE POS (NEG); RBC,URINE TNTC /HPF (0-2); SQUAMOUS EPITHELIAL CELL,UR OCC /LPF; UROBILINOGEN,URINE 1 mg/dL (0.2 mg/dL)
[2018-09-20] MEDS ORDERED: MORPHINE SULFATE 10 MG/ML SYRINGE. SQ ONE (21:15)
[2018-09-20] MEDS ORDERED: FLUC100T7 PO (21:29)
[2018-09-20] MEDS ORDERED: CEPH-264 PO (21:29)
[2018-09-20 22:00] VITALS: BP 125/84
[2018-09-20] MEDS ORDERED: PHENAZOPYRIDINE 200 MG TABLET. PO ONE (22:00)
[2018-09-20] MEDS ORDERED: KETOROLAC 30 MG/ML VIAL. IV ONE (22:00)
[2018-09-20] MEDS ORDERED: CEPHALEXIN 250 MG CAPSULE PO ONE (22:00)
[2018-09-20 22:23] LABS: BASO # 0.1 x10^3/uL (0.0-0.2); BASO % 1 % (0-3); EOS # 0.4 x10^3/uL (0.0-0.7); EOS % 3 % (0-3); HEMATOCRIT 44.4 % (36.0-47.0); HEMOGLOBIN 14.7 g/dL (12.0-15.5); LYMPH # 2.9 x10^3/uL (1.0-4.8); LYMPH % 22 % (24-48); MEAN CORPUSCULAR HEMOGLOBIN 31 pg (25-35); MEAN CORPUSCULAR HGB CONC 33 g/dL (31-37); MEAN CORPUSCULAR VOLUME 92 fL (79-100); MONO # 1.2 x10^3/uL (0.0-1.1); MONO % 9 % (0-9); NEUT # 8.7 x10^3uL (1.8-7.7); NEUT % 65 % (31-73); PLATELET COUNT 310 x10^3/uL (140-400); RED BLOOD COUNT 4.81 x10^6/uL (3.50-5.40); RED CELL DISTRIBUTION WIDTH 14.6 % (11.5-14.5); WHITE BLOOD COUNT 13.4 x10^3/uL (4.0-11.0)
[2018-09-20 22:41] LABS: ALBUMIN 4.6 g/dL (3.4-5.0); CALCIUM 10.2 mg/dL (8.5-10.1); CREATININE 0.9 mg/dL (0.6-1.0); GFR 72.1; TOTAL BILIRUBIN 0.2 mg/dL (0.2-1.0); TOTAL PROTEIN 8.4 g/dL (6.4-8.2)
[2018-09-20 22:42] LABS: DIRECT BILIRUBIN 0.1 mg/dL (0.0-0.2); POTASSIUM 3.8 mmol/L (3.5-5.1)
[2018-09-23 17:07] LABS: CHLAMYDIA PROBE Negative (Negative)
== END 2018-09-20 22:28 | disposition home or self-care (01) ==
LOC: ER 20:01
DX: N39.0 Urinary tract infection, site not specified (principal); N72 Inflammatory disease of cervix uteri; F17.210 Nicotine dependence, cigarettes, uncomplicated; F15.90 Other stimulant use, unspecified, uncomplicated; D72.829 Elevated white blood cell count, unspecified; K58.9 Irritable bowel syndrome, unspecified; Z87.440 Personal history of urinary (tract) infections; Z98.51 Tubal ligation status; Z79.899 Other long term (current) drug therapy; Z88.1 Allergy status to other antibiotic agents; Z88.2 Allergy status to sulfonamides; Z88.0 Allergy status to penicillin
CPT/HCPCS: 36415; 80048; 80076; 80307; 81001; 81025; 82150; 83690; 85025; 85610; 85730; 87086; 87491; 87591; 96372; 96374; 96375; 99284; J1885; J2270; J2405; J3490; J7120; Q0111

== ENCOUNTER 2018-10-11 14:08 | Emergency (ER) | payer OTHER ==
[~2018-10-11] VITALS: Ht 167.6 cm; Wt 56.7 kg
[~2018-10-11 14:08] MED LIST changes: +FLUC100T7 PO
--- NOTE | 2018-10-11 15:04 | PHYS DOC ---
Past History Past Medical History: Anxiety, IBS, UTI Past Surgical History: Tubal ligation Smoking: Cigarettes Additional Smoking Information: 1/2 PACK Alcohol Use: Sober Drug Use: None, Methamphetamine Adult General Chief Complaint Chief Complaint: BLOOD IN URINE [facility] HPI Patient is a 33-year-old female who presents with complaint of painful urination and hematuria for the last couple of days. Patient states that she had been treated previously for urinary tract infection and had prescription for Keflex. She was also given. EM. She states that initially symptoms had improved but have again gotten painful. She denies any fever. She does indicate that she had falle n onto her right buttock last night but does not think that the hematuria was due to that. She does admit to being on menstrual cycle at this time.[] Review of Systems Review of Systems Constitutional: Denies fever or chills [] Respiratory: Denies cough or shortness of breath [] Cardiovascular: No additional information not addressed in HPI [] GI: Denies abdominal pain, nausea, vomiting, bloody stools or diarrhea [] : Positive dysuria and hematuria [] Musculoskeletal: Complains of right buttock pain [] Allergies Allergies Allergies Coded Allergies Type Severity Reaction Last Updated Verified doxycycline Allergy Severe 03/05/18 Yes Sulfa (Sulfonamide Antibiotics) Allergy Intermediate rash 04/18/16 Yes Penicillins Allergy Unknown rash 11/15/17 Yes Physical Exam Physical Exam Constitutional: Well developed, well nourished, no acute distress, non-toxic ap pearance. [] Cardiovascular:Heart rate regular rhythm, no murmur [] Lungs & Thorax: Bilateral breath sounds clear to auscultation [] Abdomen: Bowel sounds normal, soft, with suprapubic tenderness. [] Skin: Warm, dry, no erythema, no rash. [] Back: There is mild tenderness to palpation around the right buttock with no point tenderness over sacrum or coccyx. [] Extremities: No tenderness, no cyanosis, no clubbing, ROM intact, no edema. [] Current Patient Data Vital Signs Vital Signs Date Time Temp Pulse Resp B/P (MAP) Pulse Ox O2 Delivery O2 Flow Rate FiO2 10/11/18 14:20 97.6 84 20 100 Room Air EKG EKG [] Radiology/Procedures Radiology/Procedures [] Course & Med Decision Making Course & Med Decision Making Pertinent Labs and Imaging studies reviewed. (See chart for details) [] Dragon Disclaimer Dragon Disclaimer This electronic medical record was generated, in whole or in part, using a voice recognition dictation system. Departure Departure: Impression: Primary Impression: Hematuria Additional Impression: Dysuria Disposition: HOME, SELF-CARE Condition: STABLE Referrals: [facility] (PCP) Patient Instructions: Dysuria, Hematuria, Adult Scripts Phenazopyridine Hcl (PYRIDIUM) 100 Mg Tablet 100 MG PO TID PRN for URINARY PAIN, #12 TAB Prov: MARCO A IBARRA Jr. DO 10/11/18 Nitrofurantoin Monohyd/M-Cryst (MACROBID 100 MG CAPSULE) 100 Mg Capsule 1 CAP PO BID for infection, #14 CAP Prov: MARCO A IBARRA Jr. DO 10/11/18 Problem Qualifiers Primary Impression: Hematuria Hematuria type: unspecified type Qualified Codes: R31.9 - Hematuria, unspecified MARCO A IBARRA Jr., DO Oct 11, 2018 15:04
[2018-10-11 15:15] LABS: U PREG PATIENT NEGATIVE (NEG)
[2018-10-11 15:17] LABS: COLOR,URINE RED
[2018-10-11 15:18] LABS: BILIRUBIN,URINE NEG (NEG); CLARITY,URINE BLOODY; GLUCOSE,URINE NEG (NEG); UROBILINOGEN,URINE 0.2 mg/dL (0.2 mg/dL)
[2018-10-11 15:19] LABS: NITRITE,URINE NEG (NEG)
[2018-10-11 15:28] LABS: BACTERIA,URINE MOD /HPF (0-FEW); RBC,URINE TNTC /HPF (0-2); SQUAMOUS EPITHELIAL CELL,UR FEW /LPF
[2018-10-11] MEDS ORDERED: NITR100C62 PO (16:03)
[2018-10-11] MEDS ORDERED: PHEN100T82 PO (16:03)
[2018-10-11 16:10] VITALS: BP 132/88
== END 2018-10-11 16:15 | disposition home or self-care (01) ==
LOC: ER 14:08
DX: R30.0 Dysuria (principal); R31.9 Hematuria, unspecified; M54.5 Low back pain; K58.9 Irritable bowel syndrome, unspecified; F17.200 Nicotine dependence, unspecified, uncomplicated; Z87.440 Personal history of urinary (tract) infections; Z88.1 Allergy status to other antibiotic agents; Z88.2 Allergy status to sulfonamides; Z88.0 Allergy status to penicillin
CPT/HCPCS: 81001; 81025; 87086; 99284

== ENCOUNTER → 2019-10-26 | Outpatient (CLI) | payer OTHER ==
[~2019-10-26] MED LIST changes: +NITR100C62 PO; +PHEN100T82 PO
--- NOTE | 2019-10-26 19:18 | RAD ---
LUMBAR SPINE 2-3V History: Severe low back pain, fall 1 week ago Comparison: None. Findings: 3 views of the lumbar spine are submitted. Lumbar vertebral body stature and AP alignment are maintained. Intervertebral disc spaces are preserved. There is mild levoscoliosis centered near L4. No acute osseous abnormality is identified by radiographs. Impression: 1. No acute osseous abnormality is identified by radiographs. There is mild lumbar levoscoliosis. Electronically signed by: Guanakito Crystal MD (10/26/2019 7:15 PM) [facility]
== END ==
LOC: DXRAD 18:52
PROVIDERS: ATTEND Physician Assistant Medical
DX: M41.86 Other forms of scoliosis, lumbar region (principal)
CPT/HCPCS: 72100